=== PATIENT | female | born 1960 ===

== ENCOUNTER 2025-01-10 08:44 | Outpatient (AMB) | payer OTHER, SELFPAY ==
--- NOTE | 2025-01-10 08:49 | MHC.OFFVIS ---
Vital Signs 01/10/25 08:50 Height 5 ft Weight 103 lb 9.876 oz BMI 20.2 BP 133/81 Blood Pressure Location Lt brachial Position Sitting Pulse 80 Intake Visit Reasons: Diarrhea Intake Note: Bhumika presents in the office as a new patient for diarrhea. CC: She states that she has been having diarrhea every day - she states she eats good but she will have severe diarrhea that has been going on for months. Usually after she eats. She states she hears her body digesting the foods. Management Specialist Required: No Allergies No Known Allergies Allergy (Verified 01/10/25 08:50) HPI Comments Details: 64 y.o F with no significant PMH who is here for chronic diarrhea. Started almost 6 months ago. Reports urgency to defecate shortly after eating within 30-60 mins with abd cramping and discomfort. Night time sx +. Stools are watery. 3-4 times a day. Has lost a few lbs because of this. Has tried to eliminate certain foods without any change in sx. Once she has a BM no further cramping. No fevers or chills. No sick contacts. No travel hx. No new meds, in fact does not take any prescription meds. Last colo was 2021. Done at [facility]. Was told normal, and recall was 10 years. Fam hx: sister: breast sister at age 64 sister: panc ca at age 49. No hx of IBD or CRC in fam. Former smoker - remote hx. Drinks etOH 3-4 times a week 1 drink per day. [facility] Surgical History (Updated 01/10/25 @ 08:50 by JUAN Agustin) Hx of colonoscopy Physical Exam Vital Signs: Last Vital Signs Pulse 80 01/10/25 08:50 BP 133/81 01/10/25 08:50 BMI result Body Mass Index 20.2 No apparent distress Nonicteric Abdomen soft, nondistended Alert and oriented x3, normal gait Assessment & Plan Assessment & Plan (1) Chronic diarrhea: Code(s): K52.9 - Noninfective gastroenteritis and colitis, unspecified Category: Medical (2) Change in bowel habit: Code(s): R19.4 - Change in bowel habit Category: Medical (3) Family history of pancreatic cancer: Code(s): Z80.0 - Family history of malignant neoplasm of digestive organs Category: Medical Plan Pt with recent change in bowel habits and diarrhea including at night time. Fam hx of panc ca in sister. Ddx include IBD, microscopic colitis, panc insufficiency, malabsorption. CRC also considered though low likelihood in the context of normal colo 3 years ago. Plan: - Labs as below - CT abd/pel with contrast - Close follow up in 3 weeks to review results and determine indication of endoscopic eval Orders: Orders Comprehensive Met. Panel Today K52.9 - Noninfective gastroenteritis and colitis, unspecified Ferritin Today K52.9 - Noninfective gastroenteritis and colitis, unspecified Hepatitis B Surface Antibody Today K52.9 - Noninfective gastroenteritis and colitis, unspecified Hepatitis B Surface Antigen Today K52.9 - Noninfective gastroenteritis and colitis, unspecified TSH reflex Free T4 Today K52.9 - Noninfective gastroenteritis and colitis, unspecified Transglutaminase IgA Today K52.9 - Noninfective gastroenteritis and colitis, unspecified Complete Blood Count no Diff Today K52.9 - Noninfective gastroenteritis and colitis, unspecified Calprotectin, Fecal Today K52.9 - Noninfective gastroenteritis and colitis, unspecified C Reactive Protein Today K52.9 - Noninfective gastroenteritis and colitis, unspecified Hemoglobin A1c Today K52.9 - Noninfective gastroenteritis and colitis, unspecified Hepatitis A IgG Today K52.9 - Noninfective gastroenteritis and colitis, unspecified Hepatitis B Core Antibody Today K52.9 - Noninfective gastroenteritis and colitis, unspecified Hepatitis C Antibody Today K52.9 - Noninfective gastroenteritis and colitis, unspecified HIV Ab/Ag Today K52.9 - Noninfective gastroenteritis and colitis, unspecified Immunoglobulin A Today K52.9 - Noninfective gastroenteritis and colitis, unspecified IRON PROFILE Today K52.9 - Noninfective gastroenteritis and colitis, unspecified CT abdomen pelvis w IV con Today R19.4 - Change in bowel habit, Z80.0 - Family history of malignant neoplasm of digestive organs Coding Level of Care Code New Pt Level 4 (48321) Complex EM visit Add On G2211 Diagnoses Chronic diarrhea K52.9 Change in bowel habit R19.4 Family history of pancreatic cancer Z80.0
[2025-01-10 08:50] VITALS: BP 133/81; PULSE 80; BMI 20.2
--- OUTSIDE RECORDS SUMMARY | 2025-01-10 08:50 | XMS_ITS | Encounter Summary ---
Author Organization [facility] Address [address] [place] [address] Care Team Providers Care Foster Care Social Worker Name Role Phone Sohail Andrea MD Primary Care Provider [phone] Sohail Andrea MD Primary Care Provider [phone] Reason for Referral * OUTPT P&D-MED SOLUTIONS (Routine) - Closed Specialty Diagnoses / Procedures Referred By Bakari t Referred To Contact Magnetic Resonance Imaging Diagnoses Shoulder impingement syndrome Procedures REQUEST FOR MRI SHOULDER W AND W/O CONTRAST - RIGHT FC [facility] Orthopedic Surgery [address] [facility] [address] [place] [address] Phone: tel: fax: Referral ID Status Reason Start Date Expiration Date V isits Requested Visits Authorized [id number] Closed Specialty Services Required 04/08/2009 1 1 Encounter Details Date Type Department Care Team (Late st Contact Info) Description 04/08/2009 Orders Only [facility] Orthopedic Surgery [address] [facility] [address] [place] [phone] Esmer Whitmore LPN [address] [facility] [address] [place] [address] Social History Tobacco Use Types Packs/Day Years Used Date Smoking Tobacco: Never Alcohol Use Standard Drinks/Week Comments Yes 0 (1 standard drink = 0.6 oz pur e alcohol) Comments No Sex and Gender Information Value Date Recorded Sex Assigned at Not on file Legal Sex Female 2:02 PM EDT Gender Identity Not on file Sexual Orientation Not on file documented as of this encounter Plan of Treatment Not on file documented as of this encounter Visit Diagnoses Diagnosis Shoulder impingement syndrome- Primary Other affections of shoulder region, not elsewhere classified documented in this encounter Care Teams Foster Care Social Worker Relationship Specialty Start Date End Date Sohail Andrea MD [facility] [address] [place] [phone] PCP - General 07/27/09 Sohail Andrea MD [facility] [address] [place] [phone] PCP - General 10/03/05 07/26/09 documented as of this encounter
--- OUTSIDE RECORDS SUMMARY | 2025-01-10 08:50 | XMS_ITS | Clinical Summary ---
Author Organization [facility] Address [address] [place] [address] Care Team Providers Care Channel Marketing Coordinator Name Role Phone Pcp, No Primary Care Provider [phone] Social History Tobacco Use Types Packs/Day Years Used Date Smoking Tobacco: Never Assessed Comments Unknown Sex and Gender Information Value Date Recorded Sex Assigned at Not on file Legal Sex Female 9:49 AM EDT Gender Identity Not on file Sexual Orientation Not on file Plan of Treatment Health Maintenance Due Date Last Done Comments Colorectal Cancer: [place] PY Screening every 10 yrs (or Modifier) 1961 Depression: Screening Annual ly using PHQ-2/9 in Adults 18 yrs or above (or HM Modifier)([facility]) 1979 Hepatitis C Virus Infection in Adolescents and Adults: Screening (or Modifier) ([facility]) 1979 [facility] Screening Reminder: Muriel story for all adults ([facility]) 1979 Tobacco Smoking Cessation: i n Adults excluding Women: Behavioral and Pharmacotherapy Interventions ([facility]) 1979 DTaP/Tdap/Td Vaccines ([facility]) (1 - Tdap) 01/14/1980 Cervical Cancer Screenin 1-65 yrs of age (or Modifier) 1982 Cervical Cancer Screening: P ap every 3 yrs pts age 21-65 1982 Cervical Cancer: Pap Screeni ng with Modifier timing ([facility]) 1982 Cervical Cancer: hrHPV alone or with cotesting Pap for Pts 30-65yrs screening every 5yrs ([facility]) 1982 Colorectal Cancer Screening 45 -75 Yrs (or HM Modifier ) 2006 Colorectal Cancer: FLEXIBLE SIGMOIDOSCOPY Screening every 5 yrs 2006 Colorectal Cancer: Fecal Imm unochemical Test (FIT) Annually [facility] 2006 Colorectal Cancer: High-sens itivity gFOBT Screening Annually [facility] 2006 Colorectal Cancer: Stool Col oguard Screening every 3 yrs 2006 Colorectal Cancer:CT Colonography Screening every 5 yr s 2006 Breast Cancer: Screening Muriel ually age 50-74 yrs (or HM Modifier)([facility]) 2011 Pneumococcal Vaccination Scr eening: Patients 50+ yrs of age ([facility]) (1 of 1 - PCV) 2011 Zoster/Shingles Vaccine Seri es Screening: Adults aged 18+ yrs (or HM Modifiers)([facility]) (1 of 2) 2011 COVID-19 Vaccine Screening: Initial Series and Booster Status ([facility]) (2023- season) 2024 Flu Vaccination: Yearly for ages 18mos through 64 years (or Modifier)([facility]) 02/09/2025 RSV Vaccines (1 - 1-dose 75+ series) 01/14/2036 Medical Devices Not on file Insurance [facility] Care Teams Channel Marketing Coordinator Relationship Specialty Start Date End Date Pcp, No PCP - General Family Medicine 10/22/20
--- OUTSIDE RECORDS SUMMARY | 2025-01-10 08:50 | XMS_ITS | Encounter Summary ---
Author Organization [facility] Address [address] [place] [address] Care Team Providers Care Financial Secretary Name Role Phone Eduardo Parson MD Primary Care Provider [phone] Encounter Details Date Type Department Care Team (Late st Contact Info) Description 11/27/2024 Results Follow-Up [address] [employer] Department [address] [place] [phone] Eri Chaney MD [address] [place] [phone] Social History Tobacco Use Types Packs/Day Years Used Date Smoking Tobacco: Never Passive Smoke Exposure: Never Smokeless Tobacco: Never Alcohol Use Standard Drinks/Week Comments Yes 4 (1 standard drink = 0.6 oz pur e alcohol) [facility] Utilities Answer Date Recorded In the past 12 months has th e electric, gas, oil, or water company threatened to shut off services in your home? No 11/08/2024 Hunger Vital Sign Answer Date Recorded Within the past 12 months, y ou worried that your food would run out before you got the money to buy more. Never true 11/09/19 25 Within the past 12 months, t he food you bought just didn't last and you didn't have money to get more. Never true 11/08/2024 Transportation Answer Date Recorded In the past 12 months, has l ack of reliable transportation kept you from medical appointments, meetings, work or from getting things needed for daily living? No 11/08/2024 Housing Answer Date Recorded Housing Risk Low 2 11/08/2024 Housing Risk Medium Not on file 11/08/2024 Housing Risk High Not on file 11/08/2024 What is your living situation today? [facility] 11/08/2024 Comments No Sex and Gender Information Value Date Recorded Sex Assigned at Female 05/24/2023 11:06 AM EST Legal Sex Female 5:16 PM EDT Gender Identity Female 10/22/2023 8:31 AM EDT Sexual Orientation Straight 10/22/2023 8: 31 AM EDT documented as of this encounter Miscellaneous Notes * Result Encounter Note - Eri Chaney MD - 11/27/2024 12:58 PM EDT Pap smear is normal with negative HPV documented in this encounter Plan of Treatment Upcoming Encounters Date Type Department Care Team (Late st Contact Info) Description 02/21/2025 11:00 AM EDT Office Visit [facility] [address] [facility] Department [address] [facility] [place] [address] Eduardo Parson MD [address] [place] [phone] 03/15/2025 7:30 AM EDT Appointment [facility] [address] [place] [phone] 03/15/2025 8:00 AM EDT Appointment [facility] [address] [place] [address] 12/11/2025 8:00 AM EDT Office Visit [facility] [address] [facility] Gynecology [address] [place] [phone] Eri Chaney MD [address] [place] [phone] documented as of this encounter Visit Diagnoses Not on filedocumented in this encounter Care Teams Financial Secretary Relationship Specialty Start Date End Date Eduardo Parson MD [address] [place] [phone] PCP - General Family Medicine 11/08/24 documented as of this encounter
== END 2025-01-10 09:46 | disposition home or self-care (01) ==
LOC: HO.HGI 08:44
PROVIDERS: Visit Provider Internal Medicine
DX: K52.9 Noninfective gastroenteritis and colitis, unspecified (principal); R19.4 Change in bowel habit; Z80.0 Family history of malignant neoplasm of digestive organs
CPT/HCPCS: 99204

== ENCOUNTER 2025-01-10 08:44 | Outpatient (REF) | payer OTHER, SELFPAY ==
[2025-01-10 11:05] LABS: Hematocrit 39.2 % (37.0-47.0); Hemoglobin 12.9 g/dl (12.0-16.0); Mean Corpuscular HGB Conc 32.9 g/dl (31.0-35.0); Mean Corpuscular Hemoglobin 29.7 pg (27.0-33.0); Mean Corpuscular Volume 90.3 fL (80.0-98.0); NRBC Abs Auto 0.000 X10*3/uL (0.0-0.012); NRBC Pct Auto 0.0 /100WBC (0.0-0.2); Platelet Count 244 X10*3/uL (160-400); Red Blood Count 4.34 X10*6/uL (4.20-5.50); White Blood Count 5.8 X10*3/uL (4.8-10.8)
[2025-01-10 11:09] LABS: Hemoglobin A1C 128.8619 umol/L; Total Hemoglobin (HGBA1C) 3427.4426 umol/L
[2025-01-10 11:33] LABS: Alanine Aminotransferase 22 U/L (0-31); Albumin Level 4.5 g/dL (3.5-5.0); Alkaline Phosphatase 63 U/L (39-117); Anion Gap 10 (12-20); Aspartate Amino Transferase 21 U/L (5-31); Blood Urea Nitrogen 12 mg/dL (9-16); Calcium 9.3 mg/dL (8.4-10.2); Carbon Dioxide 29 mmol/L (22-29); Chloride 105 mmol/L (96-108); Estimated Glomerular Filt Rate > 60; Iron 77 mcg/dL (30-160); Percent Iron Saturation 26 % (15-50); Potassium 3.8 mmol/L (3.3-5.1); Sodium 140 mmol/L (135-145); Total Iron Binding Capacity 296 mcg/dL (228-428); Total Protein 7.6 g/dL (6.5-8.0); Unsaturated Iron Binding 219 ug/dL
[2025-01-10 11:46] LABS: HBS Num1 1.00 mIU/mL (0-7.99); HBc Num1 0.07 S/CO (0.00-0.79); HBsAGNum1 0.30 S/CO (0.00-0.99); HIV Num 1 0.10 S/CO (0.00-0.99); Hepatitis B Surface Antigen Negative (Negative); ~HepC Num1 0.09 S/CO (0.00-0.79); ~Hepatitis B Surface Antibody NONREACTIVE (Nonreactive); ~Hepatitis C Antibody Nonreactive (Nonreactive)
[2025-01-10 11:49] LABS: Ferritin 43 ng/mL (10-250)
[2025-01-11 08:44] LABS: ~Hepatitis A Antibody IgG 0.44 S/CO (0.00-0.99)
[2025-01-11 12:47] LABS: Immunoglobulin A 171 mg/dL (70-320)
[2025-01-17 19:53] LABS: Calprotectin, Fecal 90 mcg/g
== END 2025-01-10 08:45 | disposition home or self-care (01) ==
LOC: HO.LAB 08:44
PROVIDERS: PCP Family Medicine; Visit Provider Internal Medicine
DX: K52.9 Noninfective gastroenteritis and colitis, unspecified (principal); Z13.1 Encounter for screening for diabetes mellitus; R19.4 Change in bowel habit
CPT/HCPCS: 36415; 80053; 82728; 82784; 83036; 83540; 83993; 84443; 85027; 86140; 86364; 86704; 86706; 86708; 86803; 87340; 87389

== ENCOUNTER 2025-01-24 14:52 | Outpatient (REF) | payer OTHER, SELFPAY ==
--- NOTE | ~2025-01-24 | CT_ITS ---
EXAMINATION: CT ABDOMEN AND PELVIS WITH CONTRAST CLINICAL INFORMATION: R19.4 - Change in bowel habit COMPARISON: None available. TECHNIQUE: Multidetector volumetric images were obtained from the superior aspect of the liver through the pubic symphysis following administration 85 mL of Omnipaque 350 intravenous contrast. Sagittal and coronal reformatted images were obtained on the technologist's workstation. Oral contrast: No This CT examination was performed using dose optimization techniques as appropriate, variously including the following: *Automated exposure control *Adjustment of mA and/or kV according to patient size (this includes techniques or standardized protocols for targeted exams where dose is matched to indication/reason for exam; i.e. extremities or head) *Use of iterative reconstruction technique Findings: HEPATOBILIARY: Small oval hypodensity in the medial dome of the liver is consistent with benign simple hepatic cyst. The gallbladder contains no visible stones. There is no intrahepatic or extrahepatic biliary ductal dilation. PANCREAS: The pancreatic duct diameter is borderline measuring 3 to 4 mm in the body. SPLEEN: The spleen is homogeneous and without enlargement. ADRENALS: Unremarkable without nodules or mass. 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 There is no hydronephrosis. There is no nephrolithiasis. There is no bladder wall thickening. Uterus and adnexa are unremarkable. BOWEL: The GE junction is not displaced. The GI tract is unremarkable. The appendix is nondilated and there is no wall thickening or inflammatory changes in the mesoappendix. LYMPHOVASCULAR: There is no adenopathy. There is no aneurysm or atherosclerotic calcifications. ABDOMINAL CAVITY and Wall: No ascites, mesenteric engorgement or fat stranding, or free air. There is no hernia. SOFT TISSUES: Unremarkable without abnormal masses or fluid collections. Skeletal structures: There are no lytic or blastic lesions. CT/CT abdomen pelvis w IV con IMPRESSION: Borderline dilation of the pancreatic duct in the body of the pancreas. No clear etiology is identified and it can be age-related. No masses identified and no peripancreatic fat stranding or heterogeneity is present suggestive Fleischner guidelines were followed. Electronically signed by: Ervin Chester MD 01/24/2025 05:01 PM EDT
--- OUTSIDE RECORDS SUMMARY | 2025-01-24 15:24 | XMS_ITS | Encounter Summary ---
Author Organization [facility] Address [address] [place] [address] Care Team Providers Care Rehabilitation Caseworker Name Role Phone Eduardo Parson MD Primary Care Provider [phone] Encounter Details Date Type Department Care Team (Late st Contact Info) Description 11/27/2024 Results Follow-Up [address] [employer]ATOR Department [address] [place] [phone] Eri Chaney MD [address] [place] [address] Social History Tobacco Use Types Packs/Day Years Used Date Smoking Tobacco: Never Passive Smoke Exposure: Never Smokeless Tobacco: Never Alcohol Use Standard Drinks/Week Comments Yes 4 (1 standard drink = 0.6 oz pur e alcohol) [facility] Utilities Answer Date Recorded In the past [...] Description 02/21/2025 11:00 AM EDT Office Visit [facility] [address] [facility] Department [address] [place] [address] [place] [phone] Eduardo Parson MD [address] [place] [phone] 03/15/2025 7:30 AM EDT Appointment [facility] [address] [place] [phone] Eri Chaney MD [address] [place] [phone] 03/15/2025 8:00 AM EDT Appointment [facility] [address] [place] [phone] Eri Chaney MD [address] [place] [phone] 12/11/2025 8:00 AM EDT Office Visit [facility] [address] [facility] Gynecology [address] [place] [phone] Eri Chaney MD [address] [place] [phone] documented as of this encounter Visit Diagnoses Not on filedocumented in this encounter Care Teams Rehabilitation Caseworker Relationship Specialty Start Date End Date Eduardo Parson MD [address] [place] [phone] PCP - General Family Medicine 11/08/24 documented as of this encounter
--- OUTSIDE RECORDS SUMMARY | 2025-01-24 15:24 | XMS_ITS | Encounter Summary ---
Author Organization [facility] Address [address] [place] [address] Care Team Providers Care Jet Dyeing Machine Tender Name Role Phone Sohail Andrea MD Primary Care Provider [phone] Sohail Andrea MD Primary Care Provider [phone] Reason for Referral * OUTPT P&D-MED SOLUTIONS (Routine) - Closed Specialty Diagnoses / Procedures Referred By Bakari t Referred To Contact Magnetic Resonance Imaging Diagnoses Shoulder impingement syndrome Procedures REQUEST FOR MRI SHOULDER W AND W/O CONTRAST - RIGHT FC [facility] Orthopedic Surgery [address] [facility] [address] [place] [address] Phone: tel: fax: Referral ID Status Reason Start Date Expiration Date V isits Requested Visits Authorized [id number] Closed Specialty Services Required 04/08/2009 1 1 Encounter Details Date Type Department Care Team (Late st Contact Info) Description 04/08/2009 Orders Only [facility] Orthopedic Surgery [address] [facility] [address] [place] [phone] Esmer Whitmore LPN [address] [facility] [address] [place] [address] Social History Tobacco Use Types Packs/Day Years [...] classified documented in this encounter Care Teams Jet Dyeing Machine Tender Relationship Specialty Start Date End Date Sohail Andrea MD [facility] [address] [place] [phone] PCP - General 07/27/09 Sohail Andrea MD [facility] [address] [place] [phone] PCP - General 10/03/05 07/26/09 documented as of this encounter
--- OUTSIDE RECORDS SUMMARY | 2025-01-24 15:24 | XMS_ITS | Clinical Summary ---
Author Organization [facility] Address [address] [place] [address] Care Team Providers Care Rubber Curer Name Role Phone Pcp, No Primary Care Provider [phone] Social History Tobacco Use Types Packs/Day Years [...] Adults 18 yrs or above (or HM Modifier)([facility]) 1979 Hepatitis C Virus Infection in Adolescents and Adults: Screening (or Modifier) ([facility]) [address] [facility] Screening Reminder: Muriel story for all adults ([facility]) 1979 Tobacco Smoking Cessation: i n Adults excluding Women: Behavioral and Pharmacotherapy Interventions ([facility]) 1979 DTaP/Tdap/Td Vaccines ([facility]) (1 - Tdap) 01/14/1980 Cervical Cancer Screenin 1-65 yrs of age (or Modifier) 1982 Cervical Cancer Screening: P ap every 3 yrs pts age 21-65 1982 Cervical Cancer: Pap Screeni ng with Modifier timing ([facility]) 1982 Cervical Cancer: hrHPV alone or with cotesting Pap for Pts 30-65yrs screening every 5yrs ([facility]) 1982 Colorectal Cancer Screening 45 -75 Yrs (or HM Modifier ) 2006 Colorectal Cancer: FLEXIBLE SIGMOIDOSCOPY Screening every 5 yrs 2006 Colorectal Cancer: Fecal Imm unochemical Test (FIT) Annually [facility] 2006 Colorectal Cancer: High-sens itivity gFOBT Screening Annually [facility] 2006 Colorectal Cancer: Stool Col oguard Screening every 3 yrs 2006 Colorectal Cancer:CT Colonography Screening every 5 yr s 2006 Breast Cancer: Screening Muriel ually age 50-74 yrs (or HM Modifier)([facility]) 2011 Pneumococcal Vaccination Scr eening: Patients 50+ yrs of age ([facility]) (1 of 1 - PCV) 2011 Zoster/Shingles Vaccine Seri es Screening: Adults aged 18+ yrs (or HM Modifiers)([facility]) (1 of 2) 2011 COVID-19 Vaccine Screening: Initial Series and Booster Status ([facility]) (2023- season) 2024 Flu Vaccination: Yearly for ages 18mos through 64 years (or Modifier)([facility]) 02/09/2025 RSV Vaccines (1 - 1-dose 75+ series) 01/14/2036 Medical Devices Not on file Insurance [facility] Care Teams Rubber Curer Relationship Specialty Start Date End Date Pcp, No PCP - General Family Medicine 10/22/20
== END 2025-01-24 14:53 | disposition home or self-care (01) ==
LOC: HO.CT 14:52
PROVIDERS: PCP Family Medicine; Visit Provider Internal Medicine
DX: R19.4 Change in bowel habit (principal); Z80.0 Family history of malignant neoplasm of digestive organs
CPT/HCPCS: 74177

== ENCOUNTER → 2025-01-24 14:54 | Outpatient (BNV) | payer OTHER, SELFPAY | PROVIDERS: PCP Family Medicine; Visit Provider Radiology Diagnostic Radiology | DX: K76.89 Other specified diseases of liver (principal) | CPT/HCPCS: 74177 ==

== ENCOUNTER 2025-02-12 08:31 | Outpatient (AMB) | payer OTHER, SELFPAY ==
--- NOTE | 2025-02-12 08:38 | A.OFFVIS_ITS ---
Vital Signs 02/12/25 08:39 Height 5 ft Weight 101 lb 6.602 oz BMI 19.8 BP 146/89 H Blood Pressure Location Lt brachial Position Sitting Pulse 75 Intake Visit Reasons: 3 wks f/u change in bowel habits Intake Note: Bhumika presents in the office as a 3 weeks follow up for chance in her bowel habits. CC: She is here for results to all her tests. Journeyman Pipefitter Required: No Allergies No Known Allergies Allergy (Verified 02/12/25 08:48) HPI Comments Details: 64 y.o F with no significant PMH who is here for chronic diarrhea. Started almost 6 months ago. Reports urgency to defecate shortly after eating within 30-60 mins with abd cramping and discomfort. Night time sx +. Stools are watery. 3-4 times a day. Has lost a few lbs because of this. Has tried to eliminate certain foods without any change in sx. Once she has a BM no further cramping. No fevers or chills. No sick contacts. No travel hx. No new meds, in fact does not take any prescription meds. Last colo was 2021. Done at [facility]. Was told normal, and recall was 10 years. Fam hx: sister: breast sister at age 64 sister: panc ca at age 49. No hx of IBD or CRC in fam. Former smoker - remote hx. Drinks etOH 3-4 times a week 1 drink per day. 02/12/25: Seen in follow up. Reports unchanged sx of post prandial discomfort and diarrhea. Blood work and stool testing reviewed. Overall normal. CT reviewed, borderline PD dilation. To recall, pt with fam hx of pancreatic ca. Borderline dilation of the pancreatic duct in the body of the pancreas. No clear etiology is identified and it can be age-related. No masses identified and no peripancreatic fat stranding or heterogeneity is present suggestive. [facility] Surgical History Hx of colonoscopy Review of Systems Const All systems reviewed & are unremarkable except as noted in HPI and below Physical Exam Exam Exam: No apparent distress Nonicteric Abdomen soft, nondistended Alert and oriented x3, normal gait Vital Signs: Last Vital Signs Pulse 75 02/12/25 08:39 BP 146/89 H 02/12/25 08:39 BMI result Body Mass Index 19.8 Results Reviewed Results Reviewed: Laboratory Tests 01/10/25 01/10/25 10:32 13:40 Hgb 12.9 Hct 39.2 Hemoglobin A1c % 5.6 Calcium 9.3 Iron 77 Ferritin 43 C-Reactive Protein < 0.10 Stool Calprotectin 90 IgA 171 Tiss Transglutamin IgA <1.0 Assessment & Plan Assessment & Plan (1) Pancreatic duct dilated: Code(s): K86.89 - Other specified diseases of pancreas Category: Medical (2) Chronic diarrhea: Code(s): K52.9 - Noninfective gastroenteritis and colitis, unspecified Category: Medical (3) Change in bowel habit: Code(s): R19.4 - Change in bowel habit Category: Medical (4) Family history of pancreatic cancer: Code(s): Z80.0 - Family history of malignant neoplasm of digestive organs Category: Medical Plan Based on workup done so far, most likely differentials include microscopic colitis, SIBO, enteropathy, IBS diarrhea predominant, pancreatic insufficiency. CT findings of PD dilation noted, less likely to be related to her symptoms, however due to the family history of pancreatic cancer, will perform 1 time MRCP for anatomical evaluation. Plan: -EGD colonoscopy for luminal evaluation -PEG prep Rxed and instructions reviewed -MRCP ordered -stool testing ordered as below -follow-up after testing Orders: Orders Fecal Fat Qualitative Today K52.9 - Noninfective gastroenteritis and colitis, unspecified Pancreatic Elastase-1 Today K52.9 - Noninfective gastroenteritis and colitis, unspecified MR MRCP Today K86.89 - Other specified diseases of pancreas Medications: New peg 3350-electrolytes 236-22.74-6.74 -5.86 gram (Golytely) as per split prep instructions, until fecal effluent is clear 240 mL PO Q10M 4,000 mL 0RF colonoscopy Coding Level of Care Code Est Pt Level 4 (95610) Diagnoses Pancreatic duct dilated K86.89 Chronic diarrhea K52.9 Change in bowel habit R19.4 Family history of pancreatic cancer Z80.0
[2025-02-12 08:39] VITALS: BP 146/89; PULSE 75; BMI 19.8
--- OUTSIDE RECORDS SUMMARY | 2025-02-12 08:52 | XMS_ITS | Encounter Summary ---
Author Organization [facility] Address [address] [place] [address] Care Team Providers Care Driver Merchandiser Name Role Phone Eduardo Parson MD Primary Care Provider [phone] Encounter Details Date Type Department Care Team (Latest Contact Info) Description 10/12/2022 Transcribe Orders [facility] Referral Services [address] [place] [address] Sohail Andrea MD [address] [place] [address] Elevated AST (SGOT) (Primary Dx); Family history of malignant neoplasm of pancreas Social History Tobacco Use Types Packs/Day Years Used Date Smoking Tobacco: Never Assessed Comments Unknown Sex and Gender Information Value Date Recorded Sex Assigned at Female 05/24/2023 11:06 AM EST Legal Sex Female 5:16 PM EDT Gender Identity Female 10/22/2023 8:31 AM EDT Sexual Orientation Straight 10/22/2023 8: 31 AM EDT documented as of this encounter Plan of Treatment Upcoming Encounters Date Type Department Care Team (Late st Contact Info) Description 02/21/2025 11:00 AM EDT Office Visit [facility] [address] 10 [facility] [place] [address] Eduardo Parson MD [address] [place] [address] 03/15/2025 7:30 AM EDT Appointment [facility] [address] [place] [address] Eri Chaney MD [address] [place] [address] 03/15/2025 8:00 AM EDT Appointment [facility] [address] [place] [address] Eri Chaney MD [address] [place] [address] 12/11/2025 8:00 AM EDT Office Visit [address] Gyne[address] [place] [phone] Eri Chaney MD [address] [place] [address] documented as of this encounter Visit Diagnoses Diagnosis Elevated AST (SGOT)- Primary Family history of malignant neoplasm of pancreas documented in this encounter Care Teams Driver Merchandiser Relationship Specialty Start Date End Date Eduardo Parson MD [address] [place] [address] PCP - General Family Medicine 11/08/24 documented as of this encounter
--- OUTSIDE RECORDS SUMMARY | 2025-02-12 08:52 | XMS_ITS | Clinical Summary ---
Author Organization [facility] [place] [facility] Address [address] [place] [address] Care Team Providers Care Four Slide Machine Operator Name Role Phone Pcp, No Primary Care Provider [phone] Social History Tobacco Use Types Packs/Day Years [...] Adults 18 yrs or above (or HM Modifier)([facility]) 1979 Hepatitis C Virus Infection in Adolescents and Adults: Screening (or Modifier) ([facility]) 1979 [facility] Screening Reminder: Muriel story for all adults ([facility]) 1979 Tobacco Smoking Cessation: i n Adults excluding Women: Behavioral and Pharmacotherapy Interventions ([facility]) 1979 DTaP/Tdap/Td Vaccines ([facility]) (1 - Tdap) 01/14/1980 Cervical Cancer Screenin 1-65 yrs of age (or Modifier) 1982 Cervical Cancer Screening: P ap every 3 yrs pts age 21-65 1982 Cervical Cancer: Pap Screeni ng with Modifier timing ([facility]) 1982 Cervical Cancer: hrHPV alone or with cotesting Pap for Pts 30-65yrs screening every 5yrs ([facility]) 1982 Colorectal Cancer Screening 45 -75 Yrs (or HM Modifier ) 2006 Colorectal Cancer: FLEXIBLE SIGMOIDOSCOPY Screening every 5 yrs 2006 Colorectal Cancer: Fecal Imm unochemical Test (FIT) Annually [facility] 2006 Colorectal Cancer: High-sens itivity gFOBT Screening Annually [facility] 2006 Colorectal Cancer: Stool Col oguard Screening every 3 yrs 2006 Colorectal Cancer:CT Colonography Screening every 5 yr s 2006 Breast Cancer: Screening Muriel ually age 50-74 yrs (or HM Modifier)([facility]) 2011 Pneumococcal Vaccination Scr eening: Patients 50+ yrs of age ([facility]) (1 of 1 - PCV) 2011 Zoster/Shingles Vaccine Seri es Screening: Adults aged 18+ yrs (or HM Modifiers)([facility]) (1 of 2) 2011 COVID-19 Vaccine Screening: Initial Series and Booster Status ([facility]) (2023- season) 2024 Flu Vaccination: Yearly for ages 18mos through 64 years (or Modifier)([facility]) 02/09/2025 RSV Vaccines (1 - 1-dose 75+ series) 01/14/2036 Medical Devices Not on file Insurance [facility] Care Teams Four Slide Machine Operator Relationship Specialty Start Date End Date Pcp, No PCP - General Family Medicine 10/22/20
--- OUTSIDE RECORDS SUMMARY | 2025-02-12 08:53 | XMS_ITS | Clinical Summary ---
Author Organization [facility] Address [address] [facility] [address] [place] [address] Phone Care Team Providers Care Environmental Restoration Planner Name Role Phone Sohail Andrea MD Primary Care Provider Allergies No known active allergies Medications nystatin cream Apply topically 2 (two) times a day. For 2 weeks to rash on back and then as needed 30 g 11 9 Active Active Problems Problem Noted Date Diagnosed Date Allergic contact dermatitis due to rubber chemic al 10/27/2018 Allergic contact dermatitis due to dyes 10/28/19 19 Allergic contact dermatitis due to cosmetics Contact allergic reaction 10/24/2018 Tinea versicolor 10/24/2018 Social History Tobacco Use Types Packs/Day Years Used Date Smoking Tobacco: Never Assessed Education Answer Date Recorded Are you interested in more education? Not on luther e 11/06/2022 Are you concerned about learning? Not on file 11/06/2022 No 11/06/2022 No 11/06/2022 Digital Access Answer Date Recorded No 12/05/2022 No 12/05/2022 Reliable internet access at home? Not on file 12/05/2022 Device with a working camera? Not on file Comments Unknown Sex and Gender Information Value Date Recorded Sex Assigned at Not on file Legal Sex Female 9:09 AM EDT Gender Identity Not on file Sexual Orientation Not on file Plan of Treatment Health Maintenance Due Date Last Done Comments Adult Td,Tdap Booster 1961 LIPID PANEL 1961 DEPRESSION SCREENING 1973 SMOKING Hx and SMOKELESS TOBACCO SCREENING 1974 HEPATITIS C SCREENING 1979 HIV ONE-TIME SCREENING (18-6 5 YEARS) 1979 PAP SMEAR 1982 MAMMOGRAM 2001 COLOGUARD 2006 COLONOSCOPY 2006 COLORECTAL CANCER SCREENING 2006 FIT TEST 2006 FOBT 2006 SIGMOIDOSCOPY 2006 VIRTUAL COLONOSCOPY 2006 PNEUMOCOCCAL VACCINES (50+ years) (1 of 1 - PCV) 2011 COVID-19 VACCINE (3 - 2023-2 5 season) 2024 11/26/2020, 11/05/2020 RSV VACCINE (1 - 1-dose 75+ series) 01/14/2036 ZOSTER VACCINES Completed 08/13/2020, 06/11/2020 HEPATITIS A VACCINES Aged Out No long er eligible based on patient's age to complete this topic HIB VACCINES Aged Out No longer eligi ble based on patient's age to complete this topic MENINGOCOCCAL VACCINES (ACWY) Aged Out No longer eligible based on patient's age to complete this topic MENINGOCOCCAL VACCINES (B) Aged Out N o longer eligible based on patient's age to complete this topic Medical Devices Not on file Insurance [facility] [employer] [place] [employer] [place] [employer] [place] [id number] [place] [facility] [place] Address: [place] [address] [place] [id number] [facility] [place] Address: [place] [address] [place] [id number] [employer] [employer] [employer] [employer] [employer] Care Teams Environmental Restoration Planner Relationship Specialty Start Date End Date Sohail Andrea MD [address] [place] [address] PCP - General Family Medicine 02/21/18 Additional Source Comments The information contained in this document represents components of the legal health record. It is not the complete legal health record.[facility]
--- OUTSIDE RECORDS SUMMARY | 2025-02-12 08:53 | XMS_ITS | Encounter Summary ---
Author Organization [facility] Address [address] [place] [address] Care Team Providers Care Manager Msw Name Role Phone Sohail Andrea MD Primary Care Provider [phone] Sohail Andrea MD Primary Care Provider [phone] Reason for Referral * OUTPT P&D-MED SOLUTIONS (Routine) - Closed Specialty Diagnoses / Procedures Referred By Bakari t Referred To Contact Magnetic Resonance Imaging Diagnoses Shoulder impingement syndrome Procedures REQUEST FOR MRI SHOULDER W AND W/O CONTRAST - RIGHT FC [facility] Orthopedic Surgery [address] [facility] [address] [place] [address] Phone: tel: fax: Referral ID Status Reason Start Date Expiration Date V isits Requested Visits Authorized [id number] Closed Specialty Services Required 04/08/2009 1 1 Encounter Details Date Type Department Care Team (Late st Contact Info) Description 04/08/2009 Orders [address] [facility] Orthopedic Surgery [address] [facility] [address] [place] [phone] Esmer Whitmore LPN [address] [facility] [address] [place] [address] Social History Tobacco Use Types Packs/Day Years [...] classified documented in this encounter Care Teams Manager Msw Relationship Specialty Start Date End Date Sohail Andrea MD [facility] [address] [place] [phone] PCP - General 07/27/09 Sohail Andrea MD [facility] [address] [place] [phone] PCP - General 10/03/05 07/26/09 documented as of this encounter
== END 2025-02-12 10:18 | disposition home or self-care (01) ==
LOC: HO.HGI 08:32
PROVIDERS: Visit Provider Internal Medicine
DX: K86.89 Other specified diseases of pancreas (principal); K52.9 Noninfective gastroenteritis and colitis, unspecified; R19.4 Change in bowel habit; Z80.0 Family history of malignant neoplasm of digestive organs
CPT/HCPCS: 99214

== ENCOUNTER 2025-02-13 07:00 | Outpatient (REF) | payer OTHER, SELFPAY ==
--- OUTSIDE RECORDS SUMMARY | 2025-02-13 07:41 | XMS_ITS | Encounter Summary ---
Author Organization [facility] Address [address] [place] [address] Care Team Providers Care Pick Up Driver Name Role Phone Eduardo Parson MD Primary Care Provider [phone] Encounter Details Date Type Department Care Team (Latest Contact Info) Description 10/12/2022 Transcribe Orders [facility] Physician Referral Services [address] [place] [address] Sohail Andrea MD [address] [place] [address] Elevated AST (SGOT) (Primary Dx); Family history [...] Description 02/21/2025 11:00 AM EDT Office Visit [facility] [address] Department 10 [facility] [place] [address] Eduardo Parson MD [address] [place] [address] 03/15/2025 7:30 AM EDT Appointment [facility] [address] [place] [address] Eri Chaney MD [address] [place] [address] 03/15/2025 8:00 AM EDT Appointment [facility] [address] [place] [address] Eri Chaney MD [address] [place] [address] 12/11/2025 8:00 AM EDT Office Visit [address] Gynecology [address] [place] [phone] Eri Chaney MD [address] [place] [address] documented as of this encounter Visit Diagnoses Diagnosis Elevated AST (SGOT)- Primary Family history of malignant neoplasm of pancreas documented in this encounter Care Teams Pick Up Driver Relationship Specialty Start Date End Date Eduardo Parson MD [address] [place] [address] PCP - General Family Medicine 11/08/24 documented as of this encounter
--- OUTSIDE RECORDS SUMMARY | 2025-02-13 07:41 | XMS_ITS | Encounter Summary ---
Author Organization [facility] Address [address] [place] [address] Care Team Providers Care Senior Front End Developer Name Role Phone Sohail Andrea MD Primary Care Provider [phone] Sohail Andrea MD Primary Care Provider [phone] Reason for Referral * OUTPT P&D-MED SOLUTIONS (Routine) - Closed Specialty Diagnoses / Procedures Referred By Bakari t Referred To Contact Magnetic Resonance Imaging Diagnoses Shoulder impingement syndrome Procedures REQUEST FOR MRI SHOULDER W AND W/O CONTRAST - RIGHT FC [facility] Orthopedic Surgery [address] [facility] [address] [place] [address] Phone: tel: fax: Referral ID Status Reason Start Date Expiration Date V isits Requested Visits Authorized [id number] Closed Specialty Services Required 04/08/2009 1 1 Encounter Details Date Type Department Care Team (Late st Contact Info) Description 04/08/2009 Orders Only [facility] Orthopedic Surgery [address] [facility] [address] [place] [phone] Esmer Whitmore LPN [address] [facility] [address] [place] [address] Social History Tobacco Use Types Packs/Day Years [...] classified documented in this encounter Care Teams Senior Front End Developer Relationship Specialty Start Date End Date Sohail Andrea MD [facility] [address] [place] [phone] PCP - General 07/27/09 Sohail Andrea MD [facility] [address] [place] [phone] PCP - General 10/03/05 07/26/09 documented as of this encounter
--- OUTSIDE RECORDS SUMMARY | 2025-02-13 07:41 | XMS_ITS | Clinical Summary ---
Author Organization [facility] Address [address] [facility] [address] [place] [address] Phone Care Team Providers Care Hardware Manager Name Role Phone Sohail Andrea MD Primary [...] topic Medical Devices Not on file Insurance [facility] [employer] [employer] [employer] [place] [employer] [place] [id number] [place] [id number] [place] [id number] [employer] [employer] Care Teams Hardware Manager Relationship Specialty Start Date End Date Sohail Andrea MD [address] [place] [address] PCP - General Family Medicine 02/21/18 Additional Source Comments The information contained in this document represents components of the legal health record. It is not the complete legal health record.[facility]
--- OUTSIDE RECORDS SUMMARY | 2025-02-13 07:41 | XMS_ITS | Clinical Summary ---
Author Organization [facility] Address [address] [facility] [place] [address] Phone Care Team Providers Care Rigging Supervisor Name Role Phone Sohail Andrea MD Primary Care Provider [phone] Allergies No known active allergies Medications dexamethasone 0.5 mg/5 mL solutionIndicat ions:Recurrent aphthous stomatitis Rinse with 5 mL for three minutes three times daily and spit out. Discontinue when your symptoms resolve 500 mL 3 8 Active Social History Tobacco Use Types Packs/Day Years Used Date Smoking Tobacco: Never Smokeless Tobacco: Never Alcohol Use Standard Drinks/Week Comments Yes 0 (1 standard drink = 0.6 oz pur e alcohol) Socially. Comments No Sex and Gender Information Value Date Recorded Sex Assigned at Not on file Legal Sex Female 11:26 AM EDT Gender Identity Not on file Sexual Orientation Not on file Last Filed Vital Signs Vital Sign Reading Time Taken Comments Blood Pressure 131/67 02/16/2018 3:13 PM EDT Pulse 84 02/16/2018 3:13 PM EDT Temperature 36.8 C (98.2 F) 02/16/2018 3:13 PM EDT Respiratory Rate - - Oxygen Saturation - - Inhaled Oxygen Concentration - - Weight - - Height - - Body Mass Index - - Plan of Treatment Health Maintenance Due Date Last Done Comments Diabetes Screening 1961 HIV Lifetime Screening 1961 Hepatitis B Lifetime Screening 1961 Hepatitis C Antibody Lifetim e Screening 1961 LIPID PANEL 1961 THRIVE SCREENING 1961 Oral Health Screen 1961 HEIP Disability Screen 1966 BEHAVIORAL HEALTH SCREEN 1973 Psych Substance Use Screen 1973 DTAP/TDAP VACCINE (1 - Tdap) 01/14/1980 Cervical Cancer Screening 1982 Colposcopy 1982 PAP SMEAR 1982 Pap + HPV 1982 MAMMOGRAM 2001 Colonoscopy FOBT- Positive 2006 Colonoscopy 2006 Colorectal Cancer Screening 2006 FOBT 2006 Sigmoidoscopy 2006 Pneumonia Vaccine 50+ (1 of 1 - PCV) 2011 Zoster Vaccine (1 of 2) 2011 COVID-19 Vaccine (1 - 2023-2 5 season) 2024 INFLUENZA VACCINE (#1) 2025 RSV Immunization 60 Years an d Older OR (1 - 1-dose 75+ series) 01/14/2036 HPV VACCINES Aged Out No longer eligi ble based on patient's age to complete this topic IPV VACCINES Aged Out No longer eligi ble based on patient's age to complete this topic MENINGOCOCCAL B Aged Out No longer el igible based on patient's age to complete this topic ROTAVIRUS VACCINES Aged Out No longer eligible based on patient's age to complete this topic Care Teams Rigging Supervisor Relationship Specialty Start Date End Date Sohail Andrea MD [address] [place], [place] PCP - General 01/24/18
== END 2025-02-13 07:01 | disposition home or self-care (01) ==
LOC: HO.LNP 07:00
PROVIDERS: Visit Provider Internal Medicine
DX: K86.89 Other specified diseases of pancreas (principal); K52.9 Noninfective gastroenteritis and colitis, unspecified; R19.4 Change in bowel habit; Z80.0 Family history of malignant neoplasm of digestive organs
CPT/HCPCS: 82656; 82705

== ENCOUNTER 2025-02-22 07:15 | Outpatient (REF) | payer OTHER, SELFPAY ==
--- NOTE | ~2025-02-22 | MR_ITS ---
EXAMINATION: MR MRCP WITHOUT CONTRAST CLINICAL INFORMATION: K86.89 COMPARISON: Correlated to CT abdomen and pelvis dated January 24, 2025. TECHNIQUE: Axial and coronal T2 fat-sat HASTE. Axial and coronal T2 HASTE. Axial in and out of phase 3-D. MRCP radial T2 fat-sat. Coronal oblique T2 fat-sat single slice. 3-D space MRCP triggered. FINDINGS: Common bile duct measures 4 mm in maximum caliber with an abrupt cut off. The junction with the second portion of the duodenum. There is a questionable, intraluminal, 2.8 mm, hypointense T2 signal at the 9 o'clock position of the distal common bile duct. No intrahepatic biliary ductal dilatation. Absent gallbladder. Main pancreatic duct measures 2 mm in maximal caliber. Ancillary findings: Liver measures 14 cm. There is a 5 mm fluid signal characteristic lesion in the dome of the right hepatic lobe. Spleen measures 8 cm. Right kidney: 4 mm fluid signal characteristic lesion in the upper pole. No hydronephrosis. Left kidney: Focal 5 mm hypointense T2 signal in the posterior upper pole. No hydronephrosis. Abundant stool, large intestine. No ascites. No aneurysm, abdominal aorta. No gross retroperitoneal lymphadenopathy. No ascites. MR/MR MRCP IMPRESSION: Concerning/questionable choledocholithiasis, distal common bile duct. 5 mm cystic lesion, right hepatic lobe. Subcentimeter cyst, right kidney. Electronically signed by: Adiel Martines MD 02/22/2025 08:08 AM EDT
--- OUTSIDE RECORDS SUMMARY | 2025-02-22 07:18 | XMS_ITS | Encounter Summary ---
Author Organization [facility] Address [address] [place] [address] Care Team Providers Care Liberal Arts And Humanities Chair Name Role Phone Sohail Andrea MD Primary Care Provider [phone] Sohail Andrea MD Primary Care Provider [phone] Reason for Referral * OUTPT P&D-MED SOLUTIONS (Routine) - Closed Specialty Diagnoses / Procedures Referred By Bakari t Referred To Contact Magnetic Resonance Imaging Diagnoses Shoulder impingement syndrome Procedures REQUEST FOR MRI SHOULDER W AND W/O CONTRAST - RIGHT FC [facility] Orthopedic Surgery [address] [facility] [address] [place] [address] Phone: tel: fax: Referral ID Status Reason Start Date Expiration Date V isits Requested Visits Authorized [id number] Closed Specialty Services Required 04/08/2009 1 1 Encounter Details Date Type Department Care Team (Late st Contact Info) Description 04/08/2009 Orders Only [facility] Orthopedic Surgery [address] [facility] [address] [place] [phone] Esmer Whitmore LPN [address] [facility] [address] [place] [address] Social History Tobacco Use Types Packs/Day Years [...] classified documented in this encounter Care Teams Liberal Arts And Humanities Chair Relationship Specialty Start Date End Date Sohail Andrea MD [facility] [address] [place] [phone] PCP - General 07/27/09 Sohail Andrea MD [facility] [address] [place] [phone] PCP - General 10/03/05 07/26/09 documented as of this encounter
--- OUTSIDE RECORDS SUMMARY | 2025-02-22 07:18 | XMS_ITS | Clinical Summary ---
Author Organization [facility] behaview & [facility] lin Address [address] [place] [address] Care Team Providers Care Home Fire Alarm Installer Name Role Phone Pcp, No Primary Care Provider [phone] Social History Tobacco Use Types Packs/Day Years [...] Adults 18 yrs or above (or HM Modifier)([facility]) 1979 Hepatitis C Virus Infection in Adolescents and Adults: Screening (or Modifier) ([facility]) [address] [facility] Screening Reminder: Muriel story for all adults ([facility]) 1979 Tobacco Smoking Cessation: i n Adults excluding Women: Behavioral and Pharmacotherapy Interventions ([facility]) 1979 DTaP/Tdap/Td Vaccines ([facility]) (1 - Tdap) 01/14/1980 Cervical Cancer Screenin 1-65 yrs of age (or Modifier) 1982 Cervical Cancer Screening: P ap every 3 yrs pts age 21-65 1982 Cervical Cancer: Pap Screeni ng with Modifier timing ([facility]) 1982 Cervical Cancer: hrHPV alone or with cotesting Pap for Pts 30-65yrs screening every 5yrs ([facility]) 1982 Colorectal Cancer Screening 45 -75 Yrs (or HM Modifier ) 2006 Colorectal Cancer: FLEXIBLE SIGMOIDOSCOPY Screening every 5 yrs 2006 Colorectal Cancer: Fecal Imm unochemical Test (FIT) Annually [facility] 2006 Colorectal Cancer: High-sens itivity gFOBT Screening Annually [facility] 2006 Colorectal Cancer: Stool Col oguard Screening every 3 yrs 2006 Colorectal Cancer:CT Colonography Screening every 5 yr s 2006 Breast Cancer: Screening Muriel ually age 50-74 yrs (or HM Modifier)([facility]) 2011 Pneumococcal Vaccination Scr eening: Patients 50+ yrs of age ([facility]) (1 of 1 - PCV) 2011 Zoster/Shingles Vaccine Seri es Screening: Adults aged 18+ yrs (or HM Modifiers)([facility]) (1 of 2) 2011 COVID-19 Vaccine Screening: Initial Series and Booster Status ([facility]) (2023- season) 2024 Flu Vaccination: Yearly for ages 18mos through 64 years (or Modifier)([facility]) 02/09/2025 RSV Vaccines (1 - 1-dose 75+ series) 01/14/2036 Medical Devices Not on file Insurance [facility] Care Teams Home Fire Alarm Installer Relationship Specialty Start Date End Date Pcp, No PCP - General Family Medicine 10/22/20
--- OUTSIDE RECORDS SUMMARY | 2025-02-22 07:18 | XMS_ITS | Encounter Summary ---
Author Organization [facility] Address [address] [place] [address] Care Team Providers Care Viticulturist Name Role Phone Eduardo Parson MD Primary Care Provider [phone] Encounter Details Date Type Department Care Team (Latest Contact Info) Description 10/12/2022 Transcribe Orders [facility]erral [facility] [address] [place] [address] Sohail Andrea MD [address] [place] [address] Elevated AST (SGOT) (Primary Dx); Family history [...] Care Team (Late st Contact Info) Description 03/15/2025 7:30 AM EDT Appointment [facility] [address] [place] [address] Eri Chaney MD [address] [place] [address] 03/15/2025 8:00 AM EDT Appointment [facility] [address] [place] [address] Eri Chaney MD [address] [place] [phone] 12/11/2025 8:00 AM EDT Office Visit [facility] [address] [facility] [place] [place] [facility] [address] [place] [address] Eri Chaney MD [address] [place] [address] 02/27/2026 8:30 AM EDT Office Visit [facility] [address] [facility] Department [address] [facility] [place] [address] Eduardo Parson MD [address] [place] [phone] documented as of this encounter Visit Diagnoses Diagnosis Elevated AST (SGOT)- Primary Family history of malignant neoplasm of pancreas documented in this encounter Care Teams Viticulturist Relationship Specialty Start Date End Date Eduardo Parson MD [address] [place] [phone] PCP - General Family Medicine 11/08/24 documented as of this encounter
--- OUTSIDE RECORDS SUMMARY | 2025-02-22 07:18 | XMS_ITS | Clinical Summary ---
Author Organization [facility] Address [address] [facility] [address] [place] [address] Phone Care Team Providers Care Dividing Machine Operator Helper Name Role Phone Sohail Andrea MD Primary [...] topic Medical Devices Not on file Insurance [facility] [place] [id number] [employer] [employer] [employer] [place] [id number] [employer] [employer] [employer] [facility] Care Teams Dividing Machine Operator Helper Relationship Specialty Start Date End Date Sohail Andrea MD [address] [place] [address] PCP - General Family Medicine 02/21/18 Additional Source Comments The information contained in this document represents components of the legal health record. It is not the complete legal health record.[facility]
== END 2025-02-22 07:16 | disposition home or self-care (01) ==
LOC: HO.MRI 07:15
PROVIDERS: PCP Family Medicine; Visit Provider Psychiatry & Neurology Neurology
DX: K86.89 Other specified diseases of pancreas (principal)
CPT/HCPCS: 74181

== ENCOUNTER → 2025-02-22 07:23 | Outpatient (BNV) | payer OTHER, SELFPAY | PROVIDERS: PCP Family Medicine; Visit Provider Radiology Diagnostic Radiology | DX: K80.51 Calculus of bile duct without cholangitis or cholecystitis with obstruction (principal) | CPT/HCPCS: 74181 ==

== ENCOUNTER 2025-03-29 06:20 | Day surgery (SDC) | payer OTHER, SELFPAY ==
--- OUTSIDE RECORDS SUMMARY | 2025-02-19 08:15 | XMS_ITS | Clinical Summary ---
Author Organization [facility] Address [address] [facility] [place] [address] Phone Care Team Providers Care Intensive Care Specialist Name Role Phone Sohail Andrea MD Primary Care Provider [phone] Allergies No known active allergies Medications dexamethasone [...] age to complete this topic Care Teams Intensive Care Specialist Relationship Specialty Start Date End Date Sohail Andrea MD [address] [place], [place] PCP - General 01/24/18
--- OUTSIDE RECORDS SUMMARY | 2025-02-19 08:15 | XMS_ITS | Clinical Summary ---
Author Organization [facility] Address [address] [facility] [address] [place] [address] Phone Care Team Providers Care Motor Vehicle Technician Name Role Phone Sohail Andrea MD Primary [...] topic Medical Devices Not on file Insurance [facility] [place] [employer] [place] [id number] [place] [id number] [place] [id number] [employer] Care Teams Motor Vehicle Technician Relationship Specialty Start Date End Date Sohail Andrea MD [address] [place] [address] PCP - General Family Medicine 02/21/18 Additional Source Comments The information contained in this document represents components of the legal health record. It is not the complete legal health record.[facility]
[2025-03-27 09:41] VITALS: BMI 19.8
[2025-03-29 06:58] VITALS: BP 105/77; PULSE 81; RESP 14; TEMP 36.6; O2SAT 99; BMI 19.5
[2025-03-29] MEDS: Lactated Ringers 1,000 ML 100 ML IVCONT (07:01)
--- NOTE | 2025-03-29 07:19 | P.CONAN_ITS ---
Documented by User: Shasta Womack NP 03/28/25 08:51 HPI - Anesthesia Eval Consult details Narrative: 65 yr old female for upper endoscopy PMF Active Problems Active Problems: All Active Problems (Updated 03/13/25 @ 11:52 by Joann Soto MD) Choledocholithiasis (Acute) Pancreatic duct dilated (Acute) Family history of pancreatic cancer (Acute) Change in bowel habit (Acute) Chronic diarrhea (Acute) Past Medical History Medical History (Updated 03/29/25 @ 06:57 by Eri Mata RN) History of endometrial biopsy Surgical History Surgical History Hx of colonoscopy (2021) Social History Social History Patient Tobacco Use Status: Never used Tobacco Use of substances other than those prescribed or required for medical reasons: No Have you been hit, kicked, punched, or otherwise hurt by someone within the past year? If so, by whom?: No Are you DNR?: No Advance Directives: No Advance Directives Information Provided: Yes Patient : No : No Poor oral hygiene: No Meds Allergies Allergy/AdvReac Type Severity Reaction Status Date / Time No Known Allergies Allergy Verified 03/29/25 06:57 Exam Height,Weight and Vital Signs: Height 5 ft Weight 46 kg Documented by User: Lori Montes DO 03/29/25 07:21 HPI - Anesthesia Eval Consult details Narrative: 65 yr old female for upper endoscopy and colonoscopy [facility] Past Medical History Medical History (Updated 03/29/25 @ 06:57 by Eri Mata RN) History of endometrial biopsy Family History Family history of problems with anesthesia: No Surgical History Surgical History Hx of colonoscopy (2021) History of Problems with Anesthesia: No Social History Social History Patient Tobacco Use Status: Never used Tobacco Use of substances other than those prescribed or required for medical reasons: No Have you been hit, kicked, punched, or otherwise hurt by someone within the past year? If so, by whom?: No Are you DNR?: No Advance Directives: No Advance Directives Information Provided: Yes Patient : No : No Poor oral hygiene: No Meds Allergies Allergy/AdvReac Type Severity Reaction Status Date / Time No Known Allergies Allergy Verified 03/29/25 06:57 Exam Exam Date and Time: 03/29/25 0715 Height,Weight and Vital Signs: Height 5 ft Weight 46 kg Vital Signs Temperature 97.9 F 03/29/25 06:58 Pulse Rate 81 03/29/25 06:58 Respiratory Rate 14 03/29/25 06:58 Blood Pressure 105/77 03/29/25 06:58 Pulse Oximetry 99 03/29/25 06:58 Oxygen Delivery Method Room Air 03/29/25 06:58 Temperature 97.9 F 03/29/25 06:58 Pulse Rate 81 03/29/25 06:58 Respiratory Rate 14 03/29/25 06:58 Blood Pressure 105/77 03/29/25 06:58 Pulse Oximetry 99 03/29/25 06:58 Oxygen Delivery Method Room Air 03/29/25 06:58 Airway Mallampati Class: II TM Dist: >3cm Neck ROM: Full Loose/Missing/Broken Teeth: No (patient denies any loose or broken teeth) Heart: S1S2 Lungs: CTAB Assessment and Plan Assessment Anesthesia Assessment: Anesthesia Plan Discussed and Chart Reviewed Final Anesthetic Review Family History of Problems with Anesthesia: No History of Problems with Anesthesia: No NPO: Yes ASA Class: I Final Preanesthetic Review: No Changes in Pt Med Stat, Meds/Allgs Chart Reviewed, Consent Obtained/Reviewed and Anes Risks/Benef Reviewed Patient Risk: Low Procedure Risk: Low Anesthetic Plan Anesthetic Plan: MAC: and Agree w/ Assess. and Plan Disposition: Standard PACU
--- NOTE | 2025-03-29 07:52 | MHC.SHP ---
Pre-Procedural Eval Section A - 24 Hr Update-Section A only Date of Service: 03/29/25 Section B - Complete if H&P > 30 days Chief Complaint: Change in bowel habit, chronic diarrhea Present Medications: see Short Stay Collaborative assessment Medical History: No relevant PMH History of Previous Operations: No relevant previous surgery Allergies: Allergies Allergy/AdvReac Type Severity Reaction Status Date / Time No Known Allergies Allergy Verified 03/29/25 06:57 Review of Systems Review of Systems Comment: Ten point ROS negative Exam Exam Comment: Gen appear: No acute distress HEENT: no icterus Chest: No overt resp distress Abd: soft, nontender, nondistended Psych: Stable affect, answering questions appropriately Neuro: A/Ox3 noted to move all extremities spontaneously Ext: no peripheral edema Plan Diagnosis/Plan: Unchanged I have reviewed the history and physical and performed a pertinent physical examination on my patient. No changes have occurred unless specified. Time Spent With Patient Time: Total time managing care of this patient today ____ minutes.
[2025-03-29 08:28] VITALS: BP 102/58; PULSE 79; RESP 15; TEMP 36.6; O2SAT 96
--- NOTE | 2025-03-29 08:34 | P.OPN-COLO_ITS ---
Colonoscopy Operative Note Operative Note Date of Service: 03/29/25 Narrative: Procedure: Upper endoscopy and colonoscopy Indication: Change in bowel habits, chronic diarrhea Endoscopist: Joann Soto MD Anesthesia Provider: Zaida Villalobos Anesthesia type: MAC Instrument: [id number] and [id number]-[id number] EGD Procedure:?? The procedure, indications, preparation and potential complications were reviewed with the patient, who indicated understanding and gave written informed consent to proceed. The endoscope was introduced through the mouth, and advanced to the 2nd part of the duodenum. The mucosa was carefully examined on slow withdrawal of the endoscope. The patient tolerated the procedure well. There were no immediate complications.? EGD Findings:? * Esophagus:? Normal esophageal mucosa was noted. The Z-line was at 40 cm. * Stomach:? Prominent rugae, linear erythema and erosions in the fundus and body with relative sparing of antrum. Retroflexion was performed in the cardia. Cold forceps mapping biopsies were taken from the stomach as per Julienne protocol. * Duodenum:? Normal duodenal mucosa. Cold forceps biopsies were taken from the duodenal bulb and 2nd portion of the duodenum to rule out celiac sprue. Colonoscopy Procedure:? The patient was then turned for the colonoscopy. A digital rectal exam was performed which was abnormal for external hemorrhoids.? A distal attachment cap was affixed to the tip of the scope and the colonoscope was then inserted through the anus and advanced through the colon and advanced to the cecum at 75 cm and terminal ileum.? Appendiceal orifice and ileocecal valve were identified. Mucosa was carefully examined under high definition white light as the instrument was slowly withdrawn in a retrograde panoramic fashion. Retroflexion was performed in rectum. The procedure was not difficult. The quality of the prep was BBPS: 2+3+3 = adequate Withdrawal time 8 minutes Limitations: No limitations Findings: Mucosa: Normal colon and terminal ileum mucosa. Cold forceps biopsies were taken in the right and left side of the colon to evaluate for microscopic colitis Protruding lesions: * One sessile polyp of size 2 mm in ascending colon. Cold forceps polypectomy was performed. The polyp was completely removed and retrieved. * Medium internal hemorrhoids without stigmata of recent bleeding. Impression: 1. Normal esophagus 2. Gastritis (biopsy) 3. Normal duodenum (biopsy) 4. Normal colon and terminal ileum mucosa (biopsy) 5. Total 1 polyp removed 6. Internal and external hemorrhoids Recommendations:?? * Follow-up path results * Avoid NSAIDs * H Pylori treatment if biopsies + * Start PPI therapy * Repeat colonoscopy for asymptomatic CRC screening in 7-10 years.
[2025-03-29 08:43] VITALS: BP 114/76; PULSE 80; RESP 16; O2SAT 99
[2025-03-29 08:57] VITALS: BP 128/74; PULSE 75; RESP 16; TEMP 36.4; O2SAT 100
== END 2025-03-29 09:18 | disposition home or self-care (01) ==
PROVIDERS: PCP Family Medicine; Visit Provider Internal Medicine
PROC: (CPT 45380; principal; 2025-03-29 07:30)
DX: R19.4 Change in bowel habit (principal); Z80.0 Family history of malignant neoplasm of digestive organs; K51.40 Inflammatory polyps of colon without complications; K57.30 Diverticulosis of large intestine without perforation or abscess without bleeding; K64.8 Other hemorrhoids; K64.4 Residual hemorrhoidal skin tags; K52.9 Noninfective gastroenteritis and colitis, unspecified; K86.89 Other specified diseases of pancreas; K29.80 Duodenitis without bleeding; K29.50 Unspecified chronic gastritis without bleeding; Z87.891 Personal history of nicotine dependence
CPT/HCPCS: 45380; 43239; 88305; 88313; 88342; J2003; J2704; J3010

== ENCOUNTER → 2025-03-29 06:20 | Outpatient (BNV) | payer OTHER, SELFPAY | PROVIDERS: PCP Family Medicine; Visit Provider Internal Medicine | DX: K52.9 Noninfective gastroenteritis and colitis, unspecified (principal); D12.2 Benign neoplasm of ascending colon; K64.8 Other hemorrhoids; K29.70 Gastritis, unspecified, without bleeding | CPT/HCPCS: 43239; 45380 ==

== ENCOUNTER 2025-04-09 09:43 | Outpatient (AMB) | payer OTHER, SELFPAY ==
--- NOTE | 2025-04-09 09:45 | MHC.OFFVIS ---
Vital Signs 04/09/25 09:52 Height 5 ft Weight 99 lb 3.328 oz BMI 19.4 BP 128/66 Blood Pressure Location Lt brachial Position Sitting Pulse 79 Intake Visit Reasons: S/p double Intake Note: Bhumika presents in the office as a follow up EGD and COLO. CC: She states that she is just here for results and concerns of what is going to happen next. Manager Of Employee Relations Required: No Allergies No Known Allergies Allergy (Verified 04/09/25 09:46) HPI Comments Details: 64 y.o F with no significant PMH who is here for chronic diarrhea. Started almost 6 months ago. Reports urgency to defecate shortly after eating within 30-60 mins with abd cramping and discomfort. Night time sx +. Stools are watery. 3-4 times a day. Has lost a few lbs because of this. Has tried to eliminate certain foods without any change in sx. Once she has a BM no further cramping. No fevers or chills. No sick contacts. No travel hx. No new meds, in fact does not take any prescription meds. Last colo was 2021. Done at [facility]. Was told normal, and recall was 10 years. Fam hx: sister: breast sister at age 64 sister: panc ca at age 49. No hx of IBD or CRC in fam. Former smoker - remote hx. Drinks etOH 3-4 times a week 1 drink per day. 02/12/25: Seen in follow up. Reports unchanged sx of post prandial discomfort and diarrhea. Blood work and stool testing reviewed. Overall normal. CT reviewed, borderline PD dilation. To recall, pt with fam hx of pancreatic ca. Borderline dilation of the pancreatic duct in the body of the pancreas. No clear etiology is identified and it can be age-related. No masses identified and no peripancreatic fat stranding or heterogeneity is present suggestive. 04/02/25: EGD/colo: 1. Normal esophagus 2. Gastritis (biopsy) 3. Normal duodenum (biopsy) 4. Normal colon and terminal ileum mucosa (biopsy) 5. Total 1 polyp removed 6. Internal and external hemorrhoids Path: A. Duodenum, biopsy: Chronic inactive duodenitis. B. Stomach, antrum lesser curvature, biopsy: Antral-type and oxyntic mucosa with mild chronic inactive inflammation; no Helicobacter organisms seen. C. Stomach, antrum greater curvature, biopsy: Antral-type and oxyntic mucosa with mild chronic inactive inflammation; no Helicobacter organisms seen. D. Stomach, incisura, biopsy: Oxyntic mucosa with mild chronic inactive inflammation; no Helicobacter organisms seen. E. Stomach, body lesser curvature, biopsy: Oxyntic mucosa with mild chronic inactive inflammation; no Helicobacter organisms seen. F. Stomach, body greater curvature, biopsy: Oxyntic mucosa with mild chronic inactive inflammation; no Helicobacter organisms seen. G. Colon, right, biopsy: Inflamed colonic mucosa with features of lymphocytic and collagenous colitis. H. Colon, ascending, polypectomy: Inflammatory polyp. I. Colon, left, biopsy: Inflamed colonic mucosa with features of lymphocytic and collagenous colitis. COMMENT: Lymphocytic colitis is a non-specific pattern of inflammation. The differential diagnosis includes idiopathic lymphocytic/microscopic colitis, drug effect, resolving infection, and severe cases of celiac disease. 04/09/25: Here for post EGD colonoscopy follow-up. Results reviewed with the patient, reviewed that gastritis is non H pylori related. Continue omeprazole for 8-12 weeks and can then discontinue. Colonoscopy biopsies are positive for microscopic colitis. Will favor treatment with Imodium as 1st line, and if no improvement within 1-2 weeks, will start budesonide. Pt had CT abd/pel done for question of pancreatic duct dilation. A follow up MRCP was also done 02/22 that shows abrupt cut off of CBD in the distal section with a questionable intraluminal defect. She is awaiting a repeat MRCP as images are ambiguous. [facility] Medical History (Updated 04/09/25 @ 12:55 by Joann Soto MD) History of endometrial biopsy Surgical History Hx of colonoscopy (2021) Social History Patient Tobacco Use Status: Never used Tobacco Review of Systems Const All systems reviewed & are unremarkable except as noted in HPI and below Physical Exam Exam Exam: No apparent distress Nonicteric Abdomen soft, nondistended Alert and oriented x3, normal gait Vital Signs: Last Vital Signs Pulse 79 04/09/25 09:52 BP 128/66 04/09/25 09:52 BMI result Body Mass Index 19.4 Assessment & Plan Assessment & Plan (1) Microscopic colitis: Code(s): K52.839 - Microscopic colitis, unspecified Category: Medical (2) Chronic diarrhea: Code(s): K52.9 - Noninfective gastroenteritis and colitis, unspecified Category: Medical (3) Choledocholithiasis: Code(s): K80.50 - Calculus of bile duct without cholangitis or cholecystitis without obstruction Category: Medical (4) Pancreatic duct dilated: Code(s): K86.89 - Other specified diseases of pancreas Category: Medical (5) Family history of pancreatic cancer: Code(s): Z80.0 - Family history of malignant neoplasm of digestive organs Category: Medical (6) Change in bowel habit: Code(s): R19.4 - Change in bowel habit Category: Medical Plan Reviewed results of egd/colo - confirms microscopic colitis -- reviewed options that can start imodium and review response or start with budesonide directly. Pt prefers to start with Imodium. If minimal improvement, can then switch to budesonide. In terms of question of CBD filling effect - repeat MRCP pending. Authorization secured and waiting on OF. Plan: - Start imodium BID to TID - Review response over the phone or portal in 1-2 weeks - MRCP pending - Follow up after MRCP to review indication for ERCP if has persistent filling defect. Medications: New loperamide (Imodium A-D) 2 mg PO TID 90 caps 0RF loose stool Coding Level of Care Code Est Pt Level 4 (84171) Diagnoses Microscopic colitis K52.839 Chronic diarrhea K52.9 Choledocholithiasis K80.50 Pancreatic duct dilated K86.89 Family history of pancreatic cancer Z80.0 Change in bowel habit R19.4
[2025-04-09 09:52] VITALS: BP 128/66; PULSE 79; BMI 19.4
--- OUTSIDE RECORDS SUMMARY | 2025-04-09 10:38 | XMS_ITS | Encounter Summary ---
Author Organization [facility] Address [address] [place] [address] Care Team Providers Care Jewelry Sales Name Role Phone Sohail Andrea MD Primary Care Provider [phone] Sohail Andrea MD Primary Care Provider [phone] Reason for Referral * Specialty Diagnoses / Procedures Referred By Contac t Referred To Contact Diagnoses CONTUSION OF RIBS Sohail Andrea MD Phone: tel: fax: Referral ID Status Reason Start Date Expiration Date Visits Re quested Visits Authorized Encounter Details Date Type Department Care Team (Late st Contact Info) Description 04/21/2007 Orders Only [facility] [address] [place] [phone] Sohail Andrea MD [facility] [address] [place] [address] Social History Tobacco Use Types Packs/Day Years Used Date Smoking Tobacco: Never Assessed Comments Unknown Sex and Gender Information Value Date Recorded Sex Assigned at Not on file Legal Sex Female 2:02 PM EDT Gender Identity Not on file Sexual Orientation Not on file documented as of this encounter Plan of Treatment Scheduled Referrals Name Type Priority Associated Diagnoses Orde r Schedule CONSULT CHIROPRACTIC NON-FC Referral Routine CONTUSION OF RIBS 04/21/2007 documented as of this encounter Visit Diagnoses Diagnosis CONTUSION OF RIBS- Primary Contusion of chest wall documented in this encounter Care Teams Jewelry Sales Relationship Specialty Start Date End Date Sohail Andrea MD [facility] [address] [place] [address] PCP - General 07/27/09 Sohail Andrea MD [facility] [address] [place] [phone] PCP - General 10/03/05 07/26/09 documented as of this encounter
--- OUTSIDE RECORDS SUMMARY | 2025-04-09 10:38 | XMS_ITS | Encounter Summary ---
Author Organization [facility] Address [address] [place] [address] Care Team Providers Care Synchronizer Name Role Phone Sohail Andrea MD Primary Care Provider [phone] Sohail Andrea MD Primary Care Provider [phone] Encounter Details Date Type Department Care Team ([facility] st Contact Info) Description 05/01/2009 Orders Only [facility] Orthopedic Surgery [address] [place] [address] [address] [place] [address] Wilbert Mays MD [facility] Sports Medicine [address] [place] [address] Social History Tobacco Use Types Packs/Day Years Used Date Smoking Tobacco: Never Alcohol Use Standard Drinks/Week Comments Yes 0 (1 standard drink = 0.6 oz pur e alcohol) socialy Comments No Sex and Gender Information Value Date Recorded Sex Assigned at Not on file Legal Sex Female 2:02 PM EDT Gender Identity Not on file Sexual Orientation Not on file Occupation Industry Job Start Date Job End Date Not on file Not on file Not on file Not on file documented as of this encounter Plan of Treatment Not on file documented as of this encounter Visit Diagnoses Diagnosis Shoulder impingement syndrome- Primary Other affections of shoulder region, not elsewhere classified documented in this encounter Care Teams Synchronizer Relationship Specialty Start Date End Date Sohail Andrea MD [facility] [address] [place] [phone] PCP - General 07/27/09 Sohail Andrea MD [facility] [address] [place] [phone] PCP - General 10/03/05 07/26/09 documented as of this encounter
--- OUTSIDE RECORDS SUMMARY | 2025-04-09 10:38 | XMS_ITS | Clinical Summary ---
Author Organization [facility] Address [address] [facility] [address] [place] [address] Phone Care Team Providers Care Lead Quality Control Technician Name Role Phone Sohail Andrea MD [...] years) (1 of 1 - PCV) 2011 INFLUENZA VACCINE (#1) 2025 , 04/14/2019, 04/12/2018 COVID-19 VACCINE (3 - 2024-2 6 season) 2025 11/26/2020, 11/05/2020 RSV VACCINE (1 - 1-dose [...] topic Medical Devices Not on file Insurance [facility] Address: [place] [address] [id number] [facility] Address: [facility] [id number] [phone] [facility] [address] [id number] [facility] Care Teams Lead Quality Control Technician Relationship Specialty Start Date End Date Sohail Andrea MD [address] [place] [address] PCP - General Family Medicine 02/21/18 Additional Source Comments The information contained in this document represents components of the legal health record. It is not the complete legal health record.[facility]
--- OUTSIDE RECORDS SUMMARY | 2025-04-09 10:38 | XMS_ITS | Clinical Summary ---
Author Organization [facility] Address [address] [facility] [place] [address] Phone Care Team Providers Care Cherry Sorter Name Role Phone Sohail Andrea MD Primary Care Provider [phone] Allergies No known active allergies Medications dexamethasone [...] COVID-19 Vaccine (1 - 2023-2 5 season) 2025 INFLUENZA VACCINE (#1) 2025 RSV Immunization 60 [...] age to complete this topic Care Teams Cherry Sorter Relationship Specialty Start Date End Date Sohail Andrea MD [address] [place], [place] PCP - General 01/24/18
--- OUTSIDE RECORDS SUMMARY | 2025-04-09 10:38 | XMS_ITS | Referral Summary ---
Author Organization [facility] r Address [address] [place] [address] Phone Care Team Providers Care Box Truck Washer Name Role Phone Sohail Andrea MD Primary Care Provider [phone] Allergies No known active allergies Medications dexamethasone [...] Mass Index - - Plan of Treatment Not on file Care Teams Box Truck Washer Relationship Specialty Start Date End Date Sohail Andrea MD [address] [place], [place] PCP - General 01/24/18
--- OUTSIDE RECORDS SUMMARY | 2025-04-09 10:38 | XMS_ITS | Encounter Summary ---
Author Organization [facility] Address [address] [place] [address] Care Team Providers Care Wreath And Garland Maker Name Role Phone Sohail Andrea MD Primary Care Provider [phone] Sohail Andrea MD Primary Care Provider [phone] Reason for Referral * OUTPT P&D-MED SOLUTIONS (Routine) - Closed Specialty Diagnoses / Procedures Referred By Bakari t Referred To Contact Magnetic Resonance Imaging Diagnoses Shoulder impingement syndrome Procedures REQUEST FOR MRI SHOULDER W AND W/O CONTRAST - RIGHT FC [facility] [address] [facility] [address] [place] [address] Phone: tel: fax: Referral ID Status Reason Start Date Expiration Date V isits Requested Visits Authorized [id number] Closed Specialty Services Required 04/08/2009 1 1 Encounter Details Date Type Department Care Team (Late st Contact Info) Description 04/08/2009 Orders Only [facility] [address] [facility] [address] [place] [phone] Esmer Whitmore LPN [address] [facility] [address] [place] [address] Social History Tobacco Use Types Packs/Day Years [...] classified documented in this encounter Care Teams Wreath And Garland Maker Relationship Specialty Start Date End Date Sohail Andrea MD [facility] [address] [place] [phone] PCP - General 07/27/09 Sohail Andrea MD [facility] [address] [place] [phone] PCP - General 10/03/05 07/26/09 documented as of this encounter
--- OUTSIDE RECORDS SUMMARY | 2025-04-09 10:38 | XMS_ITS | Clinical Summary ---
Author Organization [facility] Address [address] [place] [address] Care Team Providers Care Curriculum Development Manager Name Role Phone Sohail Santos MD Primary Care Provider [phone] Allergies No known active allergies Medications * This document contains information received from the source organization and may not represent a complete record from that organization. MULTI-VITAMIN OR TABS 1 TABLET DAILY Active Calcium + D 600-200 MG-UNIT OR TABS 1 TABLET DAILY Active Escitalopram Oxalate (LEXAPRO) 10 MG OR TABS 1 1/2 po QAM 45 2 06/13/2009 Active Active Problems Problem Noted Date Diagnosed Date Other affections of shoulder region, not elsewhere classified 06/13/2009 Overview (11/10/2013): , Osteoporosis screening 06/02/2009 Overview (06/02/2009): BMD normal 05/20 Next at 66yo Rotator cuff (capsule) sprain 02/25/2009 Endometriosis 11/03/2006 Overview (06/07/2015): 12/01/2005 KELLEE BROWN MD , Major depressive disorder, single episode, moder ate 04/02/2006 Overview (01/24/2008): 04/02/2006 [facility] Psoriasis 03/22/1995 Overview (01/24/2008): 03/22/1995 Miguel BLEDSOE M.D. Immunizations Immunization Administration Dates Next Due Influenza,seasonal,trivalent,preservative (FLUZO NE MDV) 05/18/2006 Family History Medical History Relation Name Comments Cancer - Breast Neg Hx Social History Tobacco Use Types Packs/Day Years [...] file Not on file Not on file Last Filed Vital Signs Vital Sign Reading Time Taken Comments Blood Pressure 102/62 07/18/2009 10:12 AM EST Pulse 60 07/18/2009 10:12 AM EST Temperature 36.8 C (98.2 F) 05/17/2009 10:05 AM EST Respiratory Rate 14 05/17/2009 10:05 AM EST Oxygen Saturation - - Inhaled Oxygen Concentration - - Weight 57.2 kg (126 lb) 05/17/2009 10:05 AM EST Height 152.4 cm (5') 05/17/2009 10:05 AM EST Body Mass Index 24.61 05/17/2009 10:05 AM EST Plan of Treatment Health Maintenance Due Date Last Done Comments Hepatitis C Screening 1960 DTaP/Tdap/Td (1 - Tdap) 1979 Pneumococcal 50+ years (1 of 1 - PCV) 2011 Zoster (Shingrix) (1 of 2) 2011 Pap Smear 04/19/2012 04/19/2009, 1001/2008, 12/15/2006, Additional history exists Mammogram/Breast Imaging 11/22/2014 014, 08/05/2012, 07/07/2011, Additional history exists COVID-19 Vaccine ( - 2023- season) 2025 Influenza (#1) 2025 05/18/2006 RSV (1 - 1-dose 75+ series) 01/14/2036 HPV Vaccine (No Doses Required) Completed Hep A Aged Out No longer eligi ble based on patient's age to complete this topic Hep B Aged Out No longer eligi ble based on patient's age to complete this topic Hib Aged Out No longer eligi ble based on patient's age to complete this topic Meningococcal ACWY Aged Out No longer eligible based on patient's age to complete this topic Zoster (Zostavax) Discontinued Procedures * Due to [place] 1Cast law, this organization might not be sharing negative HIV tests. Procedure Name Priority Date/Time Associated Diagnosis Comments DIGITAL SCREENING MAMMO Routine 11/22/2013 7:10 AM EDT LIQUID-BASED PAP WITH HPVH Routine 04/19/2009 from Last 3 Months or Most Recently Relevant to Health Maintenance Results * Due to [place] 1Cast law, this organization might not be sharing negative HIV tests. * DIGITAL SCREENING MAMMO (11/22/2013 7:10 AM EDT) RADIOLOGY REPORT DEPARTMENT OF RADIOLOGY Patient: BHUMIKA SANDOVAL Unit #: [id number] Ordering MD: SOHAIL SANTOS MD : 1960 Procedure: Digital Screening Mammo Age: 53 Location: C[facility] Exam Date: 11/22/13 Status: REG CLI Room/Bed: Primary MD: Patient Order: [id number] Additional Copy: SOHAIL SANTOS MD #[id number] - DIGSCRMAM #BILATERAL DIGITAL SCREENING MAMMOGRAM WITH CAD: 11/22/2013 CLINICAL: Routine. Comparison is made to exams dated: 08/05/2012 mammogram - [facility] and 07/07/2011 mammogram - [facility]. There are scattered fibroglandular elements in both breasts. Current study was also evaluated with a Computer Aided Detection (CAD) system. No significant masses, calcifications, or other findings are seen in either breast. There has been no significant interval change. IMPRESSION: NEGATIVE There is no mammographic evidence of malignancy. A 1 year screening mammogram is recommended. POI: GIUSEPPE Alonso. Electronically signed by: Nathalia turner/zeus:11/24/19 14 11:24:36 letter sent: A-Normal Benign Mammogram BI-RADS: 1 Negative [facility] RAD Anatomical Region Laterality Modality Other 11/22/2013 7:10 AM EDT Narrative 11/23/2013 5:57 PM EDT Reason for Study/History: Routine. TEST(S) PROCESSED BY DESIRE CARRILLO Sohail Santos MD IMAGING-DESIRE Final Result * LIQUID-BASED PAP WITH HPVH (04/19/2009) LIQUID-BASED PAP WITH HPVH SEE TEXT [facility] Comment: THINPREP PAP TEST WITH HPV SOURCES: CERVIX, ENDOCERVIX CLINICAL HISTORY: LMP: NOT GIVEN NORMAL EXAM ADDITIONAL INFORMATION DEPO PROVERA LPS 04/17/2008 - ENDOMETRIOSIS STATEMENT OF ADEQUACY: SATISFACTORY, ENDOCERVICAL/TRANSFORMATION ZONE COMPONENT IS PRESENT RESULT: NEGATIVE FOR INTRAEPITHELIAL LESION OR MALIGNANCY HPV DNA TEST: NOT DETECTED HIGH/INTERMEDIATE RISK HPV DNA SUBTYPES (16,18,31,33,35,39,45, 51,52,56,58,59,68) ARE NOT DETECTED. THE ANALYTICAL PERFORMANCE CHARACTERISTICS OF THIS ASSAY, WHEN USED TO TEST SUREPATH OR VAGINAL SPECIMENS, HAVE BEEN DETERMINED BY [facility]. COMMENTS: THIS PAP TEST HAS BEEN EVALUATED WITH COMPUTER ASSISTED TECHNOLOGY. HPV PERFORMED AT [facility], [address] [place] [address], RAGINI MCDONNELL M.D., DIRECTOR RESULT DATE: 04/23/2009 TECHNOLOGIST: GYNECOLOGICAL CYTOLOGY IS A SCREENING PROCEDURE SUBJECT TO BOTH FALSE NEGATIVE AND FALSE POSITIVE RESULTS. IT IS MOST RELIABLE WHEN A SATISFACTORY SAMPLE IS OBTAINED ON A REGULAR REPETITIVE BASIS. RESULTS MUST BE INTERPRETED IN THE CONTEXT OF HISTORIC AND CURRENT CLINICAL INFORMATION. 04/19/2009 04/19/2009 9:1 1 PM EDT Narrative [facility] - 04/24/2009 7:33 AM EDT Report Comments: THIS PAP TEST HAS BEEN EVALUATED WITH COMPUTER ASSISTED TECHNOLOGY. HPV PERFORMED AT [facility], [address] [place] [address], RAGINI MCDONNELL M.D., DIRECTOR [facility]-INTERFACED Final Result [facility] [address] [place] [address] from Last 3 Months or Most Recently Relevant to Health Maintenance Insurance [facility] FFS SELECT CARE (HMO) * Guarantor: BHUMIKA SANDOVAL Account Type Relation to Patient Date of Phone Billing Address [facility] [address] [place] [id number] [employer] * Guarantor: [facility] Account Type Relation to Patient Date of Phone Billing Address [employer] [facility] ATTN: A/P [address] [address] Care Teams Curriculum Development Manager Relationship Specialty Start Date End Date Sohail Santos MD [facility] [address] [place] [phone] PCP - General 07/27/09
--- OUTSIDE RECORDS SUMMARY | 2025-04-09 10:38 | XMS_ITS | Encounter Summary ---
Author Organization [facility] Address [address] [place] [address] Care Team Providers Care Marketing Performance Analyst Name Role Phone Eduardo Parson MD Primary Care Provider [phone] Encounter Details Date Type Department Care Team (Latest Contact Info) Description 10/12/2022 Transcribe Orders [facility] Physician Referral Services [address] [place] [address] Sohail Andrea MD [address] [place] [address] Elevated AST (SGOT) (Primary Dx); Family history [...] Care Team (Late st Contact Info) Description 12/11/2025 8:00 AM EDT Office Visit [facility] [address] [facility] Gy[facility] [address] [place] [address] Eri Chaney MD [address] [place] [address] 02/27/2026 8:30 AM EDT Office Visit [facility] [address] [facility] Department [address] [facility] [place] [address] Eduardo Parson MD [address] [place] [address] documented as of this encounter Visit Diagnoses Diagnosis Elevated AST (SGOT)- Primary Family history of malignant neoplasm of pancreas documented in this encounter Care Teams Marketing Performance Analyst Relationship Specialty Start Date End Date Eduardo Parson MD [address] [place] [address] PCP - General Family Medicine 11/08/24 documented as of this encounter
--- OUTSIDE RECORDS SUMMARY | 2025-04-09 10:38 | XMS_ITS | Clinical Summary ---
Author Organization [facility] Address [address] [place] [address] Care Team Providers Care Director Occupational Name Role Phone Pcp, No Primary Care Provider [phone] Social History Tobacco Use Types Packs/Day Years [...] Adults 18 yrs or above (or HM Modifier)([facility]) 1979 Hepatitis C Virus Infection in Adolescents and Adults: Screening (or Modifier) ([facility]) [address] [facility] Screening Reminder: Muriel story for all adults ([facility]) 1979 Tobacco Smoking Cessation: i n Adults excluding Women: Behavioral and Pharmacotherapy Interventions ([facility]) 1979 DTaP/Tdap/Td Vaccines ([facility]) (1 - Tdap) 01/14/1980 Cervical Cancer Screenin 1-65 yrs of age (or Modifier) 1982 Cervical Cancer Screening: P ap every 3 yrs pts age 21-65 1982 Cervical Cancer: Pap Screeni ng with Modifier timing ([facility]) 1982 Cervical Cancer: hrHPV alone or with cotesting Pap for Pts 30-65yrs screening every 5yrs ([facility]) 1982 Colorectal Cancer Screening 45 -75 Yrs (or HM Modifier ) 2006 Colorectal Cancer: FLEXIBLE SIGMOIDOSCOPY Screening every 5 yrs 2006 Colorectal Cancer: Fecal Imm unochemical Test (FIT) Annually [facility] 2006 Colorectal Cancer: High-sens itivity gFOBT Screening Annually [facility] 2006 Colorectal Cancer: Stool Col oguard Screening every 3 yrs 2006 Colorectal Cancer:CT Colonography Screening every 5 yr s 2006 Breast Cancer: Screening Muriel ually age 50-74 yrs (or HM Modifier)([facility]) 2011 Pneumococcal Vaccination Scr eening: Patients 50+ yrs of age ([facility]) (1 of 1 - PCV) 2011 Zoster/Shingles Vaccine Seri es Screening: Adults aged 18+ yrs (or HM Modifiers)([facility]) (1 of 2) 2011 Flu Vaccination: Yearly for ages 18mos through 64 years (or Modifier)([facility]) 02/09/2025 COVID-19 Vaccine Screening: Initial Series and Booster Status ([facility]) ( - 2023- season) 2025 RSV Vaccines (1 - 1-dose 75+ series) 01/14/2036 Medical Devices Not on file Insurance [facility] Care Teams Director Occupational Relationship Specialty Start Date End Date Pcp, No PCP - General Family Medicine 10/22/20
--- OUTSIDE RECORDS SUMMARY | 2025-04-09 10:38 | XMS_ITS | Encounter Summary ---
Author Organization [facility] Address [address] [place] [address] Care Team Providers Care Slab Installer Name Role Phone Eduardo Parson MD Primary Care Provider [phone] Encounter Details Date Type Department Care Team (Late st Contact Info) Description 02/16/2025 Results Follow-Up [facility] [address] [facility] Department [address] [place] [address] [place] [phone] Katy Robbins, SEISMOGRAPH COMPUTER [address] [place] [address] Social History Tobacco Use Types Packs/Day Years Used Date Smoking Tobacco: Never Passive Smoke Exposure: Never Smokeless Tobacco: Never Alcohol Use Standard Drinks/Week Comments Yes 4 (1 standard drink = 0.6 oz pur e alcohol) [facility] Utilities Answer Date Recorded In the [...] Miscellaneous Notes * Result Encounter Note - Eduardo Parson MD - 02/21/2025 12:14 PM EDT Discussed results with patient at her last visit. The testing of your complete blood count, or CBC, was normal. CBC testing typically includes white blood cells, red blood cells with hemoglobin, and platelets. Abnormalities in white blood cells may demonstrate systemic infection or inflammation, abnormalities in red blood cells or hemoglobin may indicate anemias, and abnormalities with platelets may explain bleeding problems or be due to inflammation. Your hemoglobin A1c, an average value of your blood glucose over a 3-month period, was 6.0 % which is higher compared to the previous value. Normal A1c is 5.6% and under, 5.7-6.4% is considered to bein the pre-diabetic range, and 6.5% or higher is the diabetic range. May be related to recent outside pancreatic findings. Your AST level came back normal but higher than your ALT, while your ALT was still in the normal range. This kind of pattern can sometimes be connected to alcohol use, especially if it???s a regular part of your routine. It's also worth noting that certain rjzh-zxc-naqouhs medications like acetaminophen (Tylenol) can add to liver strain, especially when combined with alcohol. This result doesn???t mean there???s serious liver damage right now, but it is a signal that your liver might be under some stress. The good news is that the liver is very resilient, and changes likecutting back on alcohol and avoiding medications that can affect the liver can really help it recover. We should recheck this in 6 months. One of your proteins was elevated; sometimes it???s a sign of inflammation. I???d like to repeat itagain in a month. Your electrolytes and kidney function were normal. Your vitamin D was normal. Your thyroid is working as it should, which is great news. A well-functioning thyroid is essential for many aspects of your health including your energy levels, mood, and metabolism. Your total cholesterol is 258 mg/dL mg/dL; the desired level is to be below 200 mg/dL. Your HDL ???good?? cholesterol is 104 mg/dL mg/dL; the desired level is to be above 40 mg/dL. Your LDL ???bad?? cholesterol is 137 mg/dL mg/dL; the desired level is to be below 130 mg/dL, and ideally below 100 mg/dL. And finally, your triglycerides are 83 mg/dL mg/dL; the desired level is to be below 150 mg/dL, however often they won't be treated until they are at 500 mg/dL. Will check lpa now. documented in this encounter Plan of Treatment Upcoming Encounters Date Type Department Care Team (Late st Contact Info) Description 12/11/2025 8:00 AM EDT Office Visit [facility] [address] [facility] Gynecology [address] [place] [phone] Eri Chaney MD [address] [place] [address] 02/27/2026 8:30 AM EDT Office Visit [facility] [address] [facility] Department [address] [place] [address] [place] [address] Eduardo Parson MD [address] [place] [address] documented as of this encounter Results * Due to [place] state law, this organization might not be sharing negative HIV tests. * (ABNORMAL) Lipoprotein A (LPA) (02/21/2025 12:33 PM EDT) Lipoprotein 216(H) <75 nmol/L 02/26/2025 9:24 PM EDT [facility]) Comment: Risk Category Optimal < 75 nmol/L Moderate 75 - 125 nmol/L High > 125 nmol/L Cardiovascular event risk category cut points (optimal, moderate, high) are based on Kelsie Barnard [facility] 2017;[id number]. Blood Structure of peripheral vein / Unknown Venipuncture / Unknown 02/21/2025 12:33 PM EDT 02/21/2025 12:33 PM EDT Narrative [facility] - 02/26/2025 9:24 PM EDT [facility] Received Date:[id number] Eduardo Parson MD LAB BLOOD ORDERABLES Final Res ult [facility] [address] [place] [address] [address] Floor, [place] [address], [place] [phone] [facility] [employer] [address] [place] [address] , * Lipase (02/21/2025 12:33 PM EDT) Lipase 34 13 - 60 U/L 02/21/2025 2:58 PM EDT [facility] Blood Structure of peripheral vein / Unknown Venipuncture / Unknown 02/21/2025 12:33 PM EDT 02/21/2025 12:33 PM EDT Eduardo Parson MD LAB BLOOD ORDERABLES Final Res ult Performing Organization Address City/[facility]/ZIP Co de Phone Number [facility] [address] [place] [address], [place] [phone] * (ABNORMAL) Protein electrophoresis, serum (02/21/2025 12:33 PM EDT) Protein, Total 7.7 6.1 - 8.1 g/dL 02/22/2025 7:28 PM EDT [facility] [employer] [facility] Albumin 4.5 3.8 - 4.8 g/dL 02/22/2025 7:28 PM EDT [employer] [facility] Alpha 1 Globulin 0.4(H) 0.2 - 0.3 g/dL 02/22/2025 7:28 PM EDT [employer] [facility] Alpha 2 Globulin 0.8 0.5 - 0.9 g/dL 02/22/2025 7:28 PM EDT [employer] [facility] Beta 1 Globulin 0.4 0.4 - 0.6 g/dL 02/22/2025 7:28 PM EDT [employer] [facility] Beta 2 Globulin 0.3 0.2 - 0.5 g/dL 02/22/2025 7:28 PM EDT [employer] [facility] Gamma Globulin 1.3 0.8 - 1.7 g/dL 02/22/2025 7:28 PM EDT [employer] [facility] Interpretation See Comments 02/22/2025 7:28 PM EDT [employer] [facility] Comment: Alpha-1 globulin increase noted. Blood Structure of peripheral vein / Unknown Venipuncture / Unknown 02/21/2025 12:33 PM EDT 02/21/2025 12:33 PM EDT Narrative [facility] - 02/22/2025 7:28 PM EDT [facility] Received Date:[id number] us Eduardo Parson MD LAB BLOOD ORDERABLES Final Res ult [facility] [address] [facility] [address]rd Floor, [place] [address], [place] [phone] [employer] [facility] [address] [facility] 3rd Floor, [place] [address], [place] [phone] documented in this encounter Visit Diagnoses Diagnosis Annual physical exam- Primary Routine general medical examination at a health care facility Pre-diabetes Other abnormal glucose Diarrhea, unspecified type Elevated serum globulin level Pure hypercholesterolemia documented in this encounter Care Teams Slab Installer Relationship Specialty Start Date End Date Eduardo Parson MD [address] [place] [address] PCP - General Family Medicine 11/08/24 documented as of this encounter
--- OUTSIDE RECORDS SUMMARY | 2025-04-09 10:39 | XMS_ITS | Encounter Summary ---
Author Organization [facility] Address [address] [place] [address] Care Team Providers Care Critical Systems Technician Name Role Phone Eduardo Parson MD Primary Care Provider [phone] Encounter Details Date Type Department Care Team (Late st Contact Info) Description 03/30/2025 myChart Message [facility] [address] [facility] Department [address] [place] [address] [place] [phone] Eduardo Parson MD [address] [place] [address] MRI results Social History Tobacco Use Types Packs/Day Years Used Date Smoking Tobacco: Never Passive Smoke Exposure: Never Smokeless Tobacco: Never Alcohol Use Standard Drinks/Week Comments Yes 4 (1 standard drink = 0.6 oz pur e alcohol) [facility] Utilities Answer Date Recorded In the [...] Description 12/11/2025 8:00 AM EDT Office Visit [facility] 118 [facility] Gynecology [address] [place] [address] Eri Chaney MD [address] [place] [address] 02/27/2026 8:30 AM EDT Office Visit [facility] [address] [facility] Department 10 [facility] [place] [address] Eduardo Parson MD [address] [place] [address] documented as of this encounter Visit Diagnoses Not on filedocumented in this encounter Care Teams Critical Systems Technician Relationship Specialty Start Date End Date Eduardo Parson MD [address] [place] [address] PCP - General Family Medicine 11/08/24 documented as of this encounter
--- OUTSIDE RECORDS SUMMARY | 2025-04-09 10:39 | XMS_ITS | Clinical Summary ---
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 LORazepam (ATIVAN) 0.5 mg tabletIndication s:Anxiety about health Take 1 tablet (0.5 mg total) by mouth 2 times a day as needed for anxiety. 30 tablet 02/21/2025 Active Active Problems Problem Noted Date Diagnosed Date ETD (Eustachian tube dysfunction), bilateral 04/2024 Assessment & Plan (11/08/2024 9:13 AM EDT): - per prior PCP 06/2024: exam is consistent with bilateral postviral eustachian tube dysfunction - recommend ENT or audiology consult Assessment & Plan (06/20/2024 9:35 AM EST): With a history that she presents for this office visit today as well as her exam is consistent with bilateral postviral eustachian tube dysfunction. We reviewed the natural history of this process, and appropriate management including nasal lavage, as needed ibuprofen or acetaminophen and most importantly for the next 3 days pseudoephedrine. We did discuss other options such as fluticasone or oral prednisone but I did not feel that either of those 2 options were as effective for her compared to the Sudafed. Follow-up as as needed Pre-diabetes 10/29/2023 Assessment & Plan (11/08/2024 9:13 AM EDT): - last A1c: 10/20/2023: Hemoglobin A1c 5.8 % not available in our records - last LDL: 10/20/2023: LDL Cholesterol 137 mg/dL not available in our records - PCV20, flu vaccines: due for PCV20 - patient is a non-smoker - continue to monitor A1c q3-6 months; lipid panel q6-12 months; flu vaccine annually Assessment & Plan (10/29/2023 9:06 AM EDT): Mild glucose elevation primarily with her A1c now at 5.8%. Given the fact that she has excellent dietary habits and maintains an excellent weight, there is little that we have to do other than monitor but watching starches was recommended. Consider follow-up in 6 months Dysplastic nevus 10/29/2023 Assessment & Plan (11/05/2023 8:29 AM EDT): Shave excisional biopsy successfully performed. Await pathology and address accordingly Assessment & Plan (10/29/2023 9:06 AM EDT): 2 x 3 mm black irregular macule with slight raised central area even darker over the right clavicle. This lesion is distinctly different than anything else on her body. Will return for shave biopsy Seasonal allergic rhinitis 05/24/2023 Assessment & Plan (11/08/2024 9:13 AM EDT): - noticing her seasonal allergies have been worsening over the last few years Assessment & Plan (10/29/2023 9:06 AM EDT): Although symptoms not considerable and her exam reassuring card there is still may be a component of allergic rhinitis with her respiratory issues. Please see discussion below Assessment & Plan (05/24/2023 10:48 AM EST): At this point time with the history that she provides indicating a slowly progressive process interfering with her exertional capacity, however reassuring exam, this may indeed relate to either a viral persistent rhinitis leading to cough and dyspnea or seasonal allergies as well. We will obtain a chest x-ray to be sure that there is not another etiology ongoing, with a peak flow of 370 I am confident that that falls within an acceptable range as well. At this point time options to treat could be a steroid taper, a LABA/ICS inhaler, or more simply use of montelukast to help with both the respiratory and the rhinitis components of seasonal winter allergies. I think that is the more reasonable approach to take at this point in time however if there is any abnormality seen on chest x-ray or symptoms persist then I would lean toward a prednisone taper next to eliminate the symptoms. Follow-up as needed Dyspnea on exertion 05/24/2023 Assessment & Plan (05/24/2023 10:48 AM EST): At this point time with the history that she provides indicating a slowly progressive process interfering with her exertional capacity, however reassuring exam, this may indeed relate to either a viral persistent rhinitis leading to cough and dyspnea or seasonal allergies as well. We will obtain a chest x-ray to be sure that there is not another etiology ongoing, with a peak flow of 370 I am confident that that falls within an acceptable range as well. At this point time options to treat could be a steroid taper, a LABA/ICS inhaler, or more simply use of montelukast to help with both the respiratory and the rhinitis components of seasonal winter allergies. I think that is the more reasonable approach to take at this point in time however if there is any abnormality seen on chest x-ray or symptoms persist then I would lean toward a prednisone taper next to eliminate the symptoms. Follow-up as needed Cardiac murmur 05/20/2023 Cervical spondylosis 05/20/2023 Hallux valgus of left foot 05/20/2023 Metatarsalgia 05/20/2023 Vitamin D deficiency 05/20/2023 Assessment & Plan (11/08/2024 9:13 AM EDT): - pertinent medication(s): none Vitamin D 25-OH Date Value Ref Range Status 10/20/2023 35.30 30.00 - 80.00 ng/mL Final Assessment & Plan (10/29/2023 9:06 AM EDT): Vitamin D level at 35.30 is excellent. 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 Monitor carefully with skin exam again every 6 months now may be most appropriate. Please see dysplastic nevus discussion Psoriasis 03/22/1995 Overview (11/09/2023): 03/22/1995 Miguel BLEDSOE M.D. Resolved Problems Problem Noted Date Diagnosed Date Resolved Date Allergic response 05/20/2023 11/08/2024 Aphthous ulcer of mouth 05/20/202310/12 At average risk for colon cancer 05/20/2023 11/08/2024 Breast asymmetry 05/20/2023 11/08/2024 Encounter for repeat Papanic olaou smear of cervix due to previous unsatisfactory results 05/20/2023 11/08/2024 S/P foot surgery, left 05/20/202311/08 Tinea versicolor 10/24/2018 11/09/2023 Endometriosis 11/03/2006 11/09/2023 Overview (05/20/2023): 12/01/2005 KELLEE BROWN MD , Major depressive disorder, s haven episode, moderate 04/02/2006 11/09/2023 Overview (11/09/2023): 04/02/2006 [facility] Encounters Date Type Department Care Team Description 03/30/2025 myChart Message [facility] [address] [facility] [place] [address] Eduardo Parson MD MRI results 03/15/2025 7:06 AM EDT - 03/15/2025 11:59 PM EDT Hospital Encounter [facility] [address] [place] [address] Eri Cahney MD Breast cancer screening by mammogram Discharge Disposition: Home or Self Care () 03/15/2025 7:06 AM EDT - 03/15/2025 11:59 PM EDT Hospital Encounter [facility] [address] [place] [address] Eri Chaney MD Post-menopausal Discharge Disposition: Home or Self Care () 03/11/2025 Results Follow-Up [address] Department [address] [place] [phone] Eduardo Parson MD Results 02/22/[address] Department [address] [place] [phone] Eduardo Parson MD Copies 02/21/2025 12:35 PM EDT Lab [facility] Site Department [address] [place] [phone] Elevated serum globulin level; Pre-diabetes; Diarrhea, unspecified type; Pure hypercholesterolemia 02/21/2025 11:00 AM EDT Office Visit [address] Department [address] [place] [phone] Eduardo Parson MD Annual physical exam (Primary Dx); Pre-diabetes; Vitamin D deficiency; Anxiety about health; Diarrhea, unspecified type 02/16/2025 6:55 AM EDT Lab [facility] Site Department [address] [place] [phone] Healthcare maintenance; Hyperglycemia; Vitamin D deficiency 02/16/2025 Results Follow-Up [address] Department [address] [place] [phone] Katy Robbins NP from Last 3 Months Immunizations Immunization Administration Dates Next Due Covid-19, Pfizer, mRNA, Sanders valent, PF 30 mcg/0.3 mL dose (for ages 12 and older) 07/01/2021,11/26/2020,11/05/2020,2020 Influenza, Injectable, Quadr ivalent, Preservative Free 06/11/2020,04/14/2019,04/12/2018 Influenza, Quadrivalent, Rec ombinant, Injectable, PF 04/27/2022 Influenza, Trivalent, MDV, Injectable 06/11/2020 ,05/18/2006 Pneumococcal Conjugate Vacci ne, 13 Valent 06/28/2015 Tetanus Toxoid, Reduced Diph theria Toxoid, and Acellular Pertussis Vaccine, Adsorbed 09/19/2021,07/07/2011 Zoster Vaccine Recombinant 08/13/2020,06/11/2020 Family History Medical History Relation Name Comments Aneurysm Brother Coronary aneurysm Brother Cancer Mother Breast cancer Sister Pancreatic cancer Sister Cervical cancer Neg Hx Colon cancer Neg Hx Osteoporosis Neg Hx Ovarian cancer Neg Hx Uterine cancer Neg Hx Relation Name Status Comments Brother Mother Sister Social History Tobacco Use Types Packs/Day Years Used Date Smoking Tobacco: Never Passive Smoke Exposure: Never Smokeless Tobacco: Never Tobacco Cessation:Counseling Given: Not Answered Alcohol Use Standard Drinks/Week Comments Yes 4 (1 standard drink = 0.6 oz pur e alcohol) [facility] Utilities Answer Date Recorded In the past 12 months has th e [employer], gas, oil, or water Ischemia Care threatened to shut off services in your [...] Orientation Straight 10/22/2023 8: 31 AM EDT Last Filed Vital Signs Vital Sign Reading Time Taken Comments Blood Pressure 112/70 02/21/2025 10:46 AM EDT Pulse 78 02/21/2025 10:46 AM EDT Temperature 35 C (95 F) 02/21/2025 10:46 AM EDT Respiratory Rate 18 11/08/2024 8:32 AM EDT Oxygen Saturation 94% 02/21/2025 10:46 AM EDT Inhaled Oxygen Concentration - - Weight 47.2 kg (104 lb) 02/21/2025 10:46 AM EDT Height 149.9 cm (4' 11 ) 02/21/2025 10:46 AM EDT Body Mass Index 21.01 02/21/2025 10:46 AM EDT Plan of Treatment Upcoming Encounters Date Type Department Care Team (Late st Contact Info) Description 12/11/2025 8:00 AM EDT Office Visit [facility] [address] [facility] [address] [place] [phone] Eri Chaney MD [address] [place] [phone] 02/27/2026 8:30 AM EDT Office Visit [facility] [address] Department [address] [facility] [place] [phone] Eduardo Parson MD [address] [place] [phone] Health Maintenance Due Date Last Done Comments Cologuard 1961 FOBT / Fit Test 1961 HIV Screening 1960 Sigmoidoscopy 1961 Pneumococcal Vaccine: 50+ Years (2 of 2 - PCV20 or PCV21) 06/28/2016 06/28/2015 COVID-19 Vaccine ( season) 2025 07/01/2021, 11/26/2020, 11/05/2020, Additional history exists Influenza Vaccine (#1) 2025 , 06/11/2020, 06/11/2020, Additional history exists Social Drivers of Health Annual Screening 11/08/2025 11/08/2024 Depression Screening and Follow-Up 02/14/2026 02/14/2025 Mammogram 03/15/2027 03/15/2025, 02/10, 03/02/2023, Additional history exists Pap Smear 11/22/2027 11/21/2024 Cervical Cancer Screening 11/21/2029 HPV and Pap Smear 11/21/2029 11/21/2024, 10/23/2021 DTaP,Tdap,and Td Vaccines (3 - Td or Tdap) 09/20/2031 09/19/2021, 07/07/2011 Colon Cancer Screening 10/17/2031 Colonoscopy 10/17/2031 10/16/2021, 10/15/2021 RSV Vaccine (60+ years old and patients) (1 - 1-dose 75+ series) 01/14/2036 Zoster Vaccines Completed 08/13/2020, 06/11/2020 Hepatitis C Screening Completed 10/20/2023 Alcohol/Substance Use Screening Completed 02/14/2025 Hepatitis B Vaccines Aged Out No long er eligible based on patient's age to complete this topic Procedures * Due to [place] state law, this organization might not be sharing negative HIV tests. Procedure Name Priority Date/Time Associated Diagnosis Comments DEXA AXIAL AND TBS Routine 03/15/2025 7: 40 AM EDT Post-menopausal MAHAD BILATERAL SCREENING DIGITAL MAMMOGRAM WITH VINOD Routine 03/15/2025 7:38 AM EDT Breast cancer screening by mammogram AMB EXTERNAL MRI ABDOMEN, OUTSIDE RESULT 02/22/2025 AMYLASE Routine 02/21/2025 12:33 PM EDT Pre-diabetes Diarrhea, unspecified type LIPOPROTEIN A (LPA) Routine 02/21/2025 12:33 PM EDT Pure hypercholesterolemia LIPASE Routine 02/21/2025 12:33 PM EDT Pre-diabetes Diarrhea, unspecified type PROTEIN ELECTROPHORESIS, SERUM Routine 02/21/2025 12:33 PM EDT Elevated serum globulin level VITAMIN D, 25-HYDROXY, TOTAL, IMMUNOASSAY Routine 02/16/2025 6:57 AM EDT Healthcare maintenance Vitamin D deficiency TSH REFLEX FREE T4 Routine 02/16/2025 6: 57 AM EDT Healthcare maintenance CBC AUTO DIFFERENTIAL Routine 02/16/2025 6:57 AM EDT Healthcare maintenance HEMOGLOBIN A1C Routine 02/16/2025 6:57 AM EDT Healthcare maintenance Hyperglycemia BASIC METABOLIC PANEL Routine 02/16/2025 6:57 AM EDT Healthcare maintenance Hyperglycemia HEPATIC FUNCTION PANEL Routine 02/16/2025 6:57 AM EDT Healthcare maintenance LIPID PANEL W/REFLEX TO DIRECT LDL Routine 02/16/2025 6:57 AM EDT Healthcare maintenance LAB - SCANNED 02/13/[address] ABDOMEN, OUTSIDE RESULT 01/24/2025 LAB - SCANNED 01/10/2025 THINPREP PAP WITH HPV SCREEN AND REFLEX HPV 16, 18/45 - PHIPPS ONLY Routine 11/21/2024 8:21 AM EDT Women's annual routine gynecological examination HEPATITIS C ANTIBODY W/REFLEX TO HCV RNA, QUANTITATIVE PCR Routine 10/20/2023 6:40 AM EDT Healthcare maintenance HM COLONOSCOPY 10/16/2021 10:51 AM EDT from Last 3 Months or Most Recently Relevant to Health Maintenance Results * Due to [place] state law, this organization might not be sharing negative HIV tests. * DXA Axial and TBS (03/15/2025 7:40 AM EDT) Anatomical Region Laterality Modality Bone Densitometr y 03/16/2025 8:42 AM EDT Impressions 03/16/2025 8:43 AM EDT This patient has osteopenia. Compared to the prior study, there has been decrease in the BMD/T value of the spine and hip. Diagnostic criteria and clinical considerations: Neither osteopenia (low bone mass) nor osteoporosis: Based on T-scores, TBS adjusted T-scores or 10 year FRAX risk) Osteopenia (low bone mass): Based on T-scores, TBS adjusted T-scores or 10 year FRAX risk Osteoporosis: Based on T-scores of or below -2.5, TBS adjusted T-scores of or below -2.5, or TBS adjusted T-scores between -1.1 and -2.4 and high 10 year FRAX probability of fracture (major osteoporotic >20% or hip >3% - additional assessment and pharmacological management to be considered A low trauma fracture (spine, hip, pelvis, proximal humerus, distal radius), especially after the age of 50 is consistent with a clinical diagnosis of osteoporosis, independent of BMD/ T-scores. Patients already diagnosed with osteoporosis and treated continue to bear the initial diagnosis, and fracture risk estimations are modified by many clinical factors, including prior treatment, or fall risk. If this radiology report contains a blank impression section, it is an incomplete radiology report. Please contact the interpreting radiologist or applicable radiology division as soon as possible to obtain the completed interpretation. Workstation ID: [id number] Narrative 03/16/2025 8:43 AM EDT EXAM: BONE MINERAL DENSITY INDICATION: 65 years years-old Female with history of Post-Menopausal State Z78.0 - I10 - Asymptomatic menopausal state. PROCEDURE: The bone mineral density (BMD) of the spine and proximal left femur was determined using an external X-ray source (Nitro PDF). SITE: [facility] COMPARISON: Prior BMD of 2013 FINDINGS: L1-L4: BMD 0.9 gm/cm2 T-Score -1.3 Z-score: 0.4 prior BMD(T) 1.04 (-0.1) Femoral neck: BMD 0.62 gm/cm2 T-Score -2 Z-score: -0.5 Total hip: BMD 0.73 gm/cm2 T-Score -1.7 Z-score: -0.6 prior BMD(T) 0.84 (0.8) The World Health Organization (WHO) defines osteoporosis (as studied in post-menopausal women) as a T value of (-)2.5 or less at any site. Osteopenia is defined by a T value between (-)1.1 and (-)2.4. 10-year Fracture Risk (FRAX) Major osteoporotic fracture 17% Hip fracture 1.4% In general, it is recommended that patients receive approximately 1000 mg of calcium daily, either from dairy products or supplements (including multiple vitamin). Patients should consider supplementing with vitamin D. Vitamin D recommendations should be discussed with Health Care Provider and measurement of vitamin D levels should be considered. Careful weight-bearing exercise is also useful in maintaining bone mass and to help protect against falls. Based on our precision data, a change of 1.5% in the spine or total hip is significant in the individual patient. Trabecular bone score (TBS) L1-L4: TBS 1.35 Z-score: 0.6 (normal microarchitecture TBS: >1.31; degraded: <1.24) Resulting Agency Comment [id number] Procedure Note Jenni Barroso MD - 03/16/2025 EXAM: BONE MINERAL DENSITY INDICATION: 65 years years-old Female with history of Post-MenopausalState Z78.0 - I10 - Asymptomatic menopausal state. PROCEDURE: The bone mineral density (BMD) of the spine and proximal leftfemur was determined using an external X-ray source (Hologic). SITE: [facility] COMPARISON: Prior BMD of 2012 FINDINGS: L1-L4: BMD 0.9 gm/cm2 T-Score -1.3 Z-score: 0.4 prior BMD(T) 1.04(-0.1) Femoral neck: BMD 0.62 gm/cm2 T-Score -2 Z-score: -0.5 Total hip: BMD 0.73 gm/cm2 T-Score -1.7 Z-score: -0.6 prior BMD(T)0.84 (0.8) The World Health Organization (WHO) defines osteoporosis (as studied inpost-menopausal women) as a T value of (-)2.5 or less at any site.Osteopenia is defined by a T value between (-)1.1 and (-)2.4. 10-year Fracture Risk (FRAX) Major osteoporotic fracture 17% Hip fracture 1.4% In general, it is recommended that patients receive approximately 1000 mgof calcium daily, either from dairy products or supplements (includingmultiple vitamin). Patients should consider supplementing with vitamin D.Vitamin D recommendations should be discussed with Health Care Providerand measurement of vitamin D levels should be considered. Carefulweight-bearing exercise is also useful in maintaining bone mass and tohelp protect against falls. Based on our precision data, a change of 1.5% in the spine or total hip issignificant in the individual patient. Trabecular bone score (TBS) L1-L4: TBS 1.35 Z-score: 0.6 (normal microarchitecture TBS: >1.31;degraded: <1.24) IMPRESSION: This patient has osteopenia. Compared to the prior study, there has beendecrease in the BMD/T value of the spine and hip. Diagnostic criteria and clinical considerations: Neither osteopenia (low bone mass) nor osteoporosis: Based on T-scores,TBS adjusted T-scores or 10 year FRAX risk) Osteopenia (low bone mass): Based on T-scores, TBS adjusted T-scores or10 year FRAX risk Osteoporosis: Based on T-scores of or below -2.5, TBS adjusted T-scores ofor below -2.5, or TBS adjusted T-scores between -1.1 and -2.4 and high 10year FRAX probability of fracture (major osteoporotic >20% or hip >3% -additional assessment and pharmacological management to be considered A low trauma fracture (spine, hip, pelvis, proximal humerus, distalradius), especially after the age of 50 is consistent with a clinicaldiagnosis of osteoporosis, independent of BMD/ T-scores. Patients alreadydiagnosed with osteoporosis and treated continue to bear the initialdiagnosis, and fracture risk estimations are modified by many clinicalfactors, including prior treatment, or fall risk. If this radiology report contains a blank impression section, it is anincomplete radiology report. Please contact the interpreting radiologistor applicable radiology division as soon as possible to obtain thecompleted interpretation. Workstation ID: [id number] Eri Chaney MD IMG DXA PROCEDURES Final Result * MAHAD Bilateral Screening Digital Mammogram With Vinod (03/15/2025 7:38 AM EDT) Anatomical Region Laterality Modality Breast Bilateral Mammography Narrative 03/27/2025 9:12 AM EDT Bhumika Sandoval Exam Date: 03/15/[address] [address] EXAMINATION MAHAD Bilateral Screening Digital Mammogram With Vinod. INDICATION Bhumika Sandoval is a 65 y.o. female and is seen for: screening. CC and MLO views were obtained. FDA approved KangaDo AI (artificial intelligence) software and R2 CAD were used as a concurrent reading aid in the interpretation of this study. COMPARISON Relevant prior exams in PACS. Bilateral Breast Findings: There are scattered areas of fibroglandular density. No significant masses, calcifications or other abnormalities are seen. IMPRESSION No evidence of malignancy. BI-RADS ATLAS category (overall): 1 - Negative MANAGEMENT Routine Screening Mammogram in 1 Year is recommended for bilateral. The patient was entered into a reminder system with a target date for their next mammogram. The patient s lifetime risk for breast cancer was calculated as: Tyrer-Cuzick: 8.1%. For high-risk women (life-time risk greater than 20%), regardless of breast density, supplemental screening with annual breast MRI is recommended in addition to annual mammography, ideally staggered at 6-month intervals. Women with dense breast tissue and lifetime risk less than 20% may also benefit from supplemental screening with breast MRI (Epic order M RI BREAST BILATERAL SCREENING W WO CONTRAST ) or automated breast ultrasound (Epic order A BUS ) depending on risk factors. https://acsearch.acr.org/docs/7829417/Narrative/ TC score is not calculated for women with personal history of breast cancer or if age >80 years. If this radiology report contains a blank impression section, it is an incomplete radiology report. Please contact the interpreting radiologist or applicable radiology division as soon as possible to obtain the completed interpretation. Carla Rogers MD Resulting Agency Comment [id number] us Eri Chaney MD IMG BI PROCEDURES Final R esult * MRI Abdomen, Outside Result (02/22/2025) Anatomical Region Laterality Modality Other 02/22/2025 us Onbase Scan Wanda AMB EXTERNAL RESULT PROCEDURE S Final Result * (ABNORMAL) Lipoprotein A (LPA) (02/21/2025 12:33 PM EDT) Lipoprotein 216(H) <75 nmol/L 02/26/2025 9:24 PM EDT [facility] MARS) Comment: Risk Category Optimal < 75 nmol/L Moderate 75 - 125 nmol/L High > 125 nmol/L Cardiovascular event risk category cut points (optimal, moderate, high) are based on Kelsie Barnard [facility] 2017;[id number]. Blood Structure of peripheral vein / Unknown Venipuncture / Unknown 02/21/2025 12:33 PM EDT 02/21/2025 12:33 PM EDT Narrative [facility] NAVARRO - 02/26/2025 9:24 PM EDT [facility] Received Date:[id number] us Eduardo Parson MD LAB BLOOD ORDERABLES Final Res ult [facility] NAVARRO [address] [place] [address] [address] Floor, [place] [address], [place] [phone] ZULEYMA POP (CARL) [address] [place] [address], [place] * (ABNORMAL) Protein electrophoresis, serum (02/21/2025 12:33 PM EDT) Protein, Total 7.7 6.1 - 8.1 g/dL 02/22/2025 7:28 PM EDT [employer] [facility] Albumin 4.5 3.8 - 4.8 g/dL 02/22/2025 7:28 PM EDT [facility] Alpha 1 Globulin 0.4(H) 0.2 - 0.3 g/dL 02/22/2025 7:28 PM EDT [facility] Alpha 2 Globulin 0.8 0.5 - 0.9 g/dL 02/22/2025 7:28 PM EDT [employer] [facility] Beta 1 Globulin 0.4 0.4 - 0.6 g/dL 02/22/2025 7:28 PM EDT [employer] [facility] Beta 2 Globulin 0.3 0.2 - 0.5 g/dL 02/22/2025 7:28 PM EDT [employer] [facility] Gamma Globulin 1.3 0.8 - 1.7 g/dL 02/22/2025 7:28 PM EDT [employer] [facility] Interpretation See Comments 02/22/2025 7:28 PM EDT [employer] [facility] Comment: Alpha-1 globulin increase noted. Blood Structure of peripheral vein / Unknown Venipuncture / Unknown 02/21/2025 12:33 PM EDT 02/21/2025 12:33 PM EDT Narrative [facility] - 02/22/2025 7:28 PM EDT [facility] Received Date:[id number] us Eduardo Parson MD LAB BLOOD ORDERABLES Final Res ult Performing Organization Address City/[facility]/ZIP Co de Phone Number [facility] [address] [facility] 3rd Floor, [place] [address], [place] [phone] [employer] [facility] [address] [facility] [address] [facility], [place] [address], [place] [phone] * Lipase (02/21/2025 12:33 PM EDT) Lipase 34 13 - 60 U/L 02/21/2025 2:58 PM EDT [facility] Blood Structure of peripheral vein / Unknown Venipuncture / Unknown 02/21/2025 12:33 PM EDT 02/21/2025 12:33 PM EDT us Eduardo Parson MD LAB BLOOD ORDERABLES Final Res ult [facility] [address] [facility] [facility] [place] [address], [place] [phone] * Amylase (02/21/2025 12:33 PM EDT) Amylase 84 28 - 127 U/L 02/21/2025 2:58 PM EDT [facility] Blood Structure of peripheral vein / Unknown Venipuncture / Unknown 02/21/2025 12:33 PM EDT 02/21/2025 12:33 PM EDT Eduardo Parson MD LAB BLOOD ORDERABLES Final Res ult Performing Organization Address [facility] Co de Phone Number [facility] [address] [address], [place] [phone] * TSH Reflex Free T4 (02/16/2025 6:57 AM EDT) TSH 2.610 0.270 - 4.200 uIU/mL 02/16/2025 10:28 AM EDT [facility] Blood Structure of peripheral vein / Unknown Venipuncture / Unknown 02/16/2025 6:57 AM EDT 02/16/2025 6:57 AM EDT Angie Sapp NP LAB BLOOD ORDERABLES Final Re sult Performing Organization Address [facility] de Phone Number [facility] [address] [address], [place] [phone] * Lipid Panel w/Reflex to Direct LDL (02/16/2025 6:57 AM EDT) Cholesterol 258 mg/dL 02/16/2025 10:28 AM EDT [facility] Comment: DESIRABLE: <200 mg/dL BORDERLINE HIGH: 200-239 mg/dL HIGH: >239 mg/dL Triglycerides 83 mg/dL 02/16/2025 10:28 AM EDT [facility] Comment: NORMAL: <150 mg/dL BORDERLINE HIGH: 150-199 mg/dL HIGH: 200-499 mg/dL VERY HIGH >499 mg/dL Cholesterol, HDL 104 mg/dL 02/17/20 10:28 AM EDT [facility] Comment: DESIRABLE: >60 mg/dL BORDERLINE: 40-59 mg/dL UNDESIRABLE: <40 mg/dL LDL Cholesterol 137 mg/dL 10:28 AM EDT [facility] Comment: OPTIMAL: <100 mg/dL NEAR OPTIMAL: <130 mg/dL BORDERLINE HIGH: 130-159 mg/dL HIGH: 160-189 mg/dL VERY HIGH: >189 mg/dL VLDL 16.6 mg/dL 02/16/2025 10:28 AM EDT [facility] Cholesterol/HDL Ratio 2.5 02/16/2025 10:28 AM EDT [facility] Blood Structure of peripheral vein / Unknown Venipuncture / Unknown 02/16/2025 6:57 AM EDT 02/16/2025 6:57 AM EDT Angie Sapp CYLINDER DIE MACHINE HELPER LAB BLOOD ORDERABLES Final Re sult [facility] [address] [place] [address], * (ABNORMAL) CBC Auto Differential (02/16/2025 6:57 AM EDT) WBC 6.4 4.8 - 10.8 10*3/uL 02/16/2025 10:47 AM EDT [facility] RBC 4.69 4.20 - 5.40 10*6/uL 02/16/2025 10:47 AM EDT [facility] Hemoglobin 13.9 11.7 - 15.5 g/dL 02/16/2025 10:47 AM EDT [facility] Hematocrit 42.1 35.7 - 45.8 % 02/16/2025 10:47 AM EDT [facility] MCV 89.8 81.0 - 99.0 fL 02/16/2025 10:47 AM EDT [facility] MCH 29.6 26.0 - 34.0 pg 02/16/2025 10:47 AM EDT [facility] MCHC 33.0 31.0 - 36.0 g/dL 02/16/2025 10:47 AM EDT [facility] RDW 14.6 12.0 - 15.0 % 02/16/2025 10:47 AM EDT [facility] RDW Standard Deviation 48.3(H) 36.4 - 46.3 fL 02/16/2025 10:47 AM EDT [facility] Platelets 271 140 - 440 10*3/uL 02/16/2025 10:47 AM EDT [facility] MPV 13.0(H) 9.4 - 12.3 fL 02/16/2025 10:47 AM EDT [facility] Neutrophil % 65.3 50.0 - 75.0 % 02/16/2025 10:47 AM EDT [facility] Immature Grans % 0.2 0.0 - 0.9 % 02/16/2025 10:47 AM EDT [facility] Lymphocyte % 22.2 20.0 - 44.0 % 02/16/2025 10:47 AM EDT [facility] Monocyte % 9.7 0.0 - 14.0 % 02/16/2025 10:47 AM EDT [facility] Eosinophil % 2.0 0.0 - 5.0 % 02/16/2025 10:47 AM EDT [facility] Basophil % 0.6 0.0 - 2.0 % 02/16/2025 10:47 AM EDT [facility] Neutrophil # 4.18 1.80 - 7.70 10*3/uL 02/16/2025 10:47 AM EDT [facility] Immature Grans # <0.03 0.00 - 0.03 10*3/uL 02/16/2025 10:47 AM EDT [facility] Lymphocyte # 1.40 1.00 - 4.75 10*3/uL 02/16/2025 10:47 AM EDT [facility] Monocyte # 0.60 0.00 - 0.60 10*3/uL 02/16/2025 10:47 AM EDT [facility] Eosinophil # 0.10 0.00 - 0.80 10*3/uL 02/16/2025 10:47 AM EDT [facility] Basophil # <0.03 0.00 - 0.20 10*3/uL 02/16/2025 10:47 AM EDT [facility] nRBC % 0.0 0 - 0 /100 WBCs 02/16/2025 10:47 AM EDT [facility] nRBC # <0.01 0.00 - 0.13 10*3/uL 02/16/2025 10:47 AM EDT [facility] Blood Structure of peripheral vein / Unknown Venipuncture / Unknown 02/16/2025 6:57 AM EDT 02/16/2025 6:57 AM EDT Angie Sapp NP LAB BLOOD ORDERABLES Final Re sult Performing Organization Address [facility]/ZIP Co de Phone Number [facility] [address] [address], [place] [phone] * Vitamin D, 25-Hydroxy, Total, Immunoassay (02/16/2025 6:57 AM EDT) Vitamin D 25-OH 38.40 30.00 - 80.00 ng/mL 02/16/2025 3:18 PM EDT [facility] Blood Structure of peripheral vein / Unknown Venipuncture / Unknown 02/16/2025 6:57 AM EDT 02/16/2025 6:57 AM EDT Angie Sapp NP LAB BLOOD ORDERABLES Final Re sult Performing Organization Address City/[facility]/ZIP Co de Phone Number [facility] [address] [address], [place] [phone] * (ABNORMAL) Hemoglobin A1c (02/16/2025 6:57 AM EDT) Hemoglobin A1c 6.0(H) 4.0 - 5.7 % 02/16/2025 10:33 AM EDT [facility] Estimated Average Glucose 126 mg/dL 02/16/2025 10:33 AM EDT [facility] Blood Structure of peripheral vein / Unknown Venipuncture / Unknown 02/16/2025 6:57 AM EDT 02/16/2025 6:57 AM EDT us Angie Sapp CYLINDER DIE MACHINE HELPER LAB BLOOD ORDERABLES Final Re sult [facility] [address] [place] [address], * (ABNORMAL) Hepatic Function Panel (02/16/2025 6:57 AM EDT) Total Protein 8.4 6.6 - 8.7 g/dL 02/16/2025 10:28 AM EDT [facility] Albumin 4.6 3.5 - 5.0 g/dL 02/16/2025 10:28 AM EDT [facility] Globulin, Total 3.8 2.1 - 4.2 g/dL 02/16/2025 10:28 AM EDT [facility] Bilirubin, Total 0.4 0.2 - 1.2 mg/dL 02/16/2025 10:28 AM EDT [facility] Bilirubin, Direct 0.1 <=0.3 mg/dL 02/16/2025 10:28 AM EDT [facility] Alkaline Phosphatase 78 40 - 129 U/L 02/16/2025 10:28 AM EDT [facility] AST 27 0 - 33 U/L 02/16/2025 10:28 AM EDT [facility] ALT 19 <=33 U/L 02/16/2025 10:28 AM EDT [facility] Bilirubin, Indirect 0.30 <=0.70 mg/dL 02/16/2025 10:28 AM EDT [facility] A/G Ratio 1.2(L) 1.5 - 3.0 02/16/2025 10:28 AM EDT [facility] Blood Structure of peripheral vein / Unknown Venipuncture / Unknown 02/16/2025 6:57 AM EDT 02/16/2025 6:57 AM EDT Angie Sapp CYLINDER DIE MACHINE HELPER LAB BLOOD ORDERABLES Final Re sult [facility] [address] [place] [address], * (ABNORMAL) Basic Metabolic Panel (02/16/2025 6:57 AM EDT) NA 138 136 - 145 mmol/L 02/16/2025 10:28 AM EDT [facility] K 4.6 3.5 - 5.1 mmol/L 02/16/2025 10:28 AM EDT [facility] Cl 100 98 - 109 mmol/L 02/16/2025 10:28 AM EDT [facility] CO2 24 22 - 32 mmol/L 02/16/2025 10:28 AM EDT [facility] BUN 12 8 - 23 mg/dL 02/16/2025 10:28 AM EDT [facility] Creatinine 0.57 0.50 - 1.12 mg/dL 02/16/2025 10:28 AM EDT [facility] Glucose 100(H) 60 - 99 mg/dL 02/16/2025 10:28 AM EDT [facility] Calcium 10.2 8.4 - 10.4 mg/dL 02/16/2025 10:28 AM EDT [facility] Anion Gap 19 >=0 02/16/2025 10:28 AM EDT [facility] eGFR >90 >=60 mL/min/1. 73m2 02/16/2025 10:28 AM EDT [facility] Comment:The estimated glomer ular filtration rate (eGFR) is calculated using a new formula developed by the NKF-ASN task force to eliminate race-based correction factors. The new formula uses serum/plasma creatinine, age, and gender to determine eGFR. A value below 60mls/min might indicate kidney disease and will be flagged. For additional information, see Sarika et al, Am J Kidney Dis. 2021;79(2):268- 288, A Unifying Approach for GFR estimation: Recommendations of the NKF-ASN Task Force on Reassessing the Inclusion of Race in Diagnosing Kidney Disease . Blood Structure of peripheral vein / Unknown Venipuncture / Unknown 02/16/2025 6:57 AM EDT 02/16/2025 6:57 AM EDT us Angie Sapp NP LAB BLOOD ORDERABLES Final Re sult [facility] [address] [place] [address] [address] [place] [address], [place] [phone] * LAB - SCANNED (02/13/2025) Only the most recent of2 resultswithin the time period is included. us Onbase Scan [facility] LAB HISTORICAL RESULTS Final Result * CT Abdomen, Outside Result (01/24/2025) Anatomical Region Laterality Modality Other 01/24/2025 us Onbase Scan [facility] EXTERNAL RESULT PROCEDURE S Final Result * Thinprep Pap with HPV Screen and Reflex HPV 16, 18/45 - [place] only (11/21/2024 8:21 AM EDT) Pap Result Normal 11/27/2024 12:00 AM EDT [facility] Comment: PAP TEST INTERPRETATION Negative for intraepithelial lesion/malignancy. Specimen Adequacy: Satisfactory for evaluation. Endocervical/transformation zone absent (atrophic smear). Additional Findings: Atrophic smear. Doper: MELISSA Coombs (ASCP) Electronic Signature: 11/27/2024 12:45 Ancillary Testing Test Name Results HPV High NEGATIVE Risk HPV NEGATIVE Genotyping 16 HPV NEGATIVE Genotyping 18 Clinical History NO LMP GIVEN Source: Cervical/Endocervical Status: Routine/Screening Comments: Z01.419 Prior Cytology/Molecular History +------ /2024 +------+------+------+------ Thinprep PAP - NILM - +------+------+------+------ Thinprep PAP NILM - UNSAT w/housetrailer servicer +------+------+------+------ HPV High NEGATI NEGATI NEGATI Risk VE VE VE +------+------+------+------ HPV NEGATI - - Genotyping VE 16 +------+------+------+------ HPV NEGATI - - Genotyping VE 18 Technical services and automated prescreening by the ThinPrep Imaging System performed at [facility] ([facility], [address] [place] [address]; ; [id number]; CLIA #[id number]) All professional services performed by [facility] ([address] [place] [address]; ; CLIA #[id number]) Testing for HPV was performed at [facility] (CLIA# [id number], [id number]) using the Joe ENRIQUE [id number] system. The presence of HPV in the female genital tract is associated with a number of diseases, including cervical carcinoma. The HPV DNA high risk pool tests for HPV 31, 33, 35, 39, 45, 51, 52, 56, 58, 59, 66 and 68. Testing for HPV 16 and 18 genotypes has also been performed. A positive result indicates detection of nucleic acid sequences from one or more subtypes, whereas negative result indicates such sequences were not detected. Results should be correlated with other clinical and cytologic findings. Gynecological cytology is a screening procedure for cervical cancer. Both false positive and false negative results may occur. Reliability of the procedure can be significantly improved by combining the results of satisfactory cytology samples obtained on a regular and repetitive basis with all relevant clinical information. Brushing Cervix uteri structure / Unknown Non-Blood Collection / Unknown 11/21/2024 8:21 AM EDT 11/22/2024 9:28 AM EDT Eri Chaney MD LAB PATH/CYTO ([place] ) Final Result [facility] [address] [place] [address], * Hepatitis C Antibody w/Reflex to HCV RNA, Quantitative PCR (10/20/2023 6:40 AM EDT) Hepatitis C Antibody Interpretation Nonreactive Nonreactive 10/20/2023 3:38 PM EDT [facility] Blood Structure of peripheral vein / Unknown Venipuncture / Unknown 10/20/2023 6:40 AM EDT 10/20/2023 6:42 AM EDT Maria Fernanda Borden NP LAB BLOOD ORDERABLES Final R esult [facility] [address] [place] [address], * HM Colonoscopy (10/16/2021 10:51 AM EDT) us Onbase Scan [facility] Final Resu lt from Last 3 Months or Most Recently Relevant to Health Maintenance Insurance [employer] Advance Directives Documents on File Type Date Recorded 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
== END 2025-04-09 10:32 | disposition home or self-care (01) ==
LOC: HO.HGI 09:44
PROVIDERS: PCP Family Medicine; Visit Provider Internal Medicine
DX: K52.839 Microscopic colitis, unspecified (principal); K52.9 Noninfective gastroenteritis and colitis, unspecified; K80.50 Calculus of bile duct without cholangitis or cholecystitis without obstruction; K86.89 Other specified diseases of pancreas; Z80.0 Family history of malignant neoplasm of digestive organs; R19.4 Change in bowel habit
CPT/HCPCS: 99214

== ENCOUNTER → 2025-05-08 07:17 | Outpatient (BNV) | payer OTHER, SELFPAY | PROVIDERS: PCP Family Medicine; Visit Provider Radiology Diagnostic Radiology | DX: K80.50 Calculus of bile duct without cholangitis or cholecystitis without obstruction (principal) | CPT/HCPCS: 74181 ==

== ENCOUNTER 2025-05-08 07:28 | Outpatient (REF) | payer OTHER, SELFPAY ==
--- NOTE | ~2025-05-08 | MR_ITS ---
EXAMINATION: MRCP HISTORY: K80.50 - Calculus of bile duct without cholangitis or cholecystitis with... COMPARISON: There are no prior studies available for comparison. TECHNIQUE: Axial gradient echo in and out of phase T1, axial T2 and fat suppressed T2, and coronal haste T2 with fat saturation images were obtained through the abdomen. 3D MRCP Reconstructed images and thick slab imaging of the biliary tree were obtained. FINDINGS: The lung bases are clear. The liver is normal in shape size, shape and signal. There is a small 1 cm low signal T1 and high signal T2 lesion seen high in the dome of the liver near the hepatic venous confluence. This is similar to prior exams. This is not definitively characterized but probably represents a cyst or hemangioma. No other focal liver lesion. Normal gallbladder. No gallstones. No intra or extrahepatic biliary duct dilatation. Common bile duct measures 6.6 mm. No filling defect seen. 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 The main pancreatic duct is normal in caliber measuring 2 to 3 mm. No filling defect. The pancreas is normal in signal. No focal pancreatic lesion. Normal adrenal glands. Normal spleen. Small 5 mm bright T2 lesion in the anterior upper pole of the right kidney similar to prior exams. This is not definitively characterized. No hydronephrosis. Visualized bowel is normal. No adenopathy. Normal vascular structures. Mild degenerative changes of the spine. Bone marrow signal is normal. MR/MR MRCP IMPRESSION: No intra or extrahepatic biliary duct dilatation or filling defect. Normal gallbladder. Stable 1 cm bright T2 lesion high in the dome of the liver near the hepatovenous confluence. This is incompletely characterized but probably represents a cyst or hemangioma. 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 No main pancreatic duct dilatation or filling defect. Stable 5 mm bright T2 lesion in the anterior upper pole of the right kidney. This is incompletely characterized Electronically signed by: Abby Patterson MD 05/08/2025 08:54 AM EDT
--- OUTSIDE RECORDS SUMMARY | 2025-05-08 07:31 | XMS_ITS | Clinical Summary ---
Author Organization [facility] Address [address] [place] [address] Care Team Providers Care Observation Nurse Name Role Phone Pcp, No Primary Care Provider [phone] Social History Tobacco Use Types Packs/Day Years [...] Adults 18 yrs or above (or HM Modifier)([facility]) 1979 Hepatitis C Virus Infection in Adolescents and Adults: Screening (or Modifier) ([facility]) [address] [facility] Screening Reminder: Muriel story for all adults ([facility]) 1979 Tobacco Smoking Cessation: i n Adults excluding Women: Behavioral and Pharmacotherapy Interventions ([facility]) 1979 DTaP/Tdap/Td Vaccines ([facility]) (1 - Tdap) 01/14/1980 Cervical Cancer Screenin 1-65 yrs of age (or Modifier) 1982 Cervical Cancer Screening: P ap every 3 yrs pts age 21-65 1982 Cervical Cancer: Pap Screeni ng with Modifier timing ([facility]) 1982 Cervical Cancer: hrHPV alone or with cotesting Pap for Pts 30-65yrs screening every 5yrs ([facility]) 1982 Colorectal Cancer Screening 45 -75 Yrs (or HM Modifier ) 2006 Colorectal Cancer: FLEXIBLE SIGMOIDOSCOPY Screening every 5 yrs 2006 Colorectal Cancer: Fecal Imm unochemical Test (FIT) Annually [facility] 2006 Colorectal Cancer: High-sens itivity gFOBT Screening Annually [facility] 2006 Colorectal Cancer: Stool Col oguard Screening every 3 yrs 2006 Colorectal Cancer:CT Colonography Screening every 5 yr s 2006 Breast Cancer: Screening Muriel ually age 50-74 yrs (or HM Modifier)([facility]) 2011 Pneumococcal Vaccination Scr eening: Patients 50+ yrs of age ([facility]) (1 of 1 - PCV) 2011 Zoster/Shingles Vaccine Seri es Screening: Adults aged 18+ yrs (or HM Modifiers)([facility]) (1 of 2) 2011 Flu Vaccination: Yearly for ages 18mos through 64 years (or Modifier)([facility]) 02/09/2025 COVID-19 Vaccine Screening: Initial Series and Booster Status ([facility]) ( - 2023- season) 2025 RSV Vaccines (1 - 1-dose 75+ series) 01/14/2036 Medical Devices Not on file Insurance [facility] Care Teams Observation Nurse Relationship Specialty Start Date End Date Pcp, No PCP - General Family Medicine 10/22/20
--- OUTSIDE RECORDS SUMMARY | 2025-05-08 07:31 | XMS_ITS | Encounter Summary ---
Author Organization [facility] Address [address] [place] [address] Care Team Providers Care Single Stayer Operator Name Role Phone Sohail Andrea MD Primary Care Provider [phone] Sohail Andrea MD Primary Care Provider [phone] Encounter Details Date Type Department Care Team ([facility] st Contact Info) Description 05/01/2009 Orders Only [facility] Orthopedic Surgery [address] [place] [address] [address] [place] [address] Wilbert Mays MD [facility] [address] [place] [address] Social History Tobacco Use Types Packs/Day Years [...] classified documented in this encounter Care Teams Single Stayer Operator Relationship Specialty Start Date End Date Sohail Andrea MD [facility] [address] [place] [phone] PCP - General 07/27/09 Sohail Andrea MD [facility] [address] [place] [phone] PCP - General 10/03/05 07/26/09 documented as of this encounter
--- OUTSIDE RECORDS SUMMARY | 2025-05-08 07:31 | XMS_ITS | Encounter Summary ---
Author Organization [facility] Address [address] [place] [address] Care Team Providers Care Public Relations Coordinator Name Role Phone Sohail Andrea MD Primary Care Provider [phone] Sohail Andrea MD Primary Care Provider [phone] Reason for Referral * OUTPT P&D-MED SOLUTIONS (Routine) - Closed Specialty Diagnoses / Procedures Referred By Bakari t Referred To Contact Magnetic Resonance Imaging Diagnoses Shoulder impingement syndrome Procedures REQUEST FOR MRI SHOULDER W AND W/O CONTRAST - RIGHT FC [facility] Orthopedic Surgery [address] [facility] [address] [place] [address] Phone: tel: fax: Referral ID Status Reason Start Date Expiration Date V isits Requested Visits Authorized [id number] Closed Specialty Services Required 04/08/2009 1 1 Encounter Details Date Type Department Care Team (Late st Contact Info) Description 04/08/2009 Orders Only [facility] Orthopedic Surgery [address] [facility] [address] [place] [phone] Esmer Whitmore LPN [address] [facility] [address] [place] [address] Social History Tobacco Use Types Packs/Day Years [...] classified documented in this encounter Care Teams Public Relations Coordinator Relationship Specialty Start Date End Date Sohail Andrea MD [facility] [address] [place] [phone] PCP - General 07/27/09 Sohail Andrea MD [facility] [address] [place] [phone] PCP - General 10/03/05 07/26/09 documented as of this encounter
--- OUTSIDE RECORDS SUMMARY | 2025-05-08 07:31 | XMS_ITS | Clinical Summary ---
Author Organization [facility] Address [address] [address] Phone Care Team Providers Care Trim Mounter Name Role Phone Sohail Andrea MD Primary Care Provider Allergies No known active allergies Medications dexamethasone [...] 01/14/1980 Cervical Cancer Screening 1982 Colposcopy 1982 LEEP 1982 PAP SMEAR 1982 Pap + HPV 1982 MAMMOGRAM 2001 Colonoscopy FOBT- Positive 2006 Colonoscopy 2006 Colorectal Cancer Screening 2006 FOBT 2006 Sigmoidoscopy 2006 Pneumonia Vaccine 50+ (1 of 1 - PCV) 2011 Zoster Vaccine (1 of 2) 2011 COVID-19 Vaccine (1 - 2024-2 6 season) 2025 INFLUENZA VACCINE (#1) 2025 RSV [...] age to complete this topic Care Teams Trim Mounter Relationship Specialty Start Date End Date Sohail Andrea MD [address] [place], [place] PCP - General 01/24/18
--- OUTSIDE RECORDS SUMMARY | 2025-05-08 07:31 | XMS_ITS | Encounter Summary ---
Author Organization [facility] Address [address] [place] [address] Care Team Providers Care Admissions Coordinator Name Role Phone Sohail Andrea MD Primary Care Provider [phone] Sohail Andrea MD Primary Care Provider [phone] Reason for Referral * Specialty Diagnoses / Procedures Referred By Contac t Referred To Contact Diagnoses CONTUSION OF RIBS Sohail Andrea MD Phone: tel: fax: Referral ID Status Reason Start Date Expiration Date Visits Re quested Visits Authorized Encounter Details Date Type Department Care Team (Late st Contact Info) Description 04/21/2007 Orders Only [facility] [address] [place] [phone] Sohail Andrea MD [facility] [address] [place] [address] Social History Tobacco Use Types Packs/Day Years [...] wall documented in this encounter Care Teams Admissions Coordinator Relationship Specialty Start Date End Date Sohail Andrea MD [facility] [address] [place] [address] PCP - General 07/27/09 Sohail Andrea MD [facility] [address] [place] [phone] PCP - General 10/03/05 07/26/09 documented as of this encounter
--- OUTSIDE RECORDS SUMMARY | 2025-05-08 07:31 | XMS_ITS | Clinical Summary ---
Author Organization [facility] Address [address] [place] [address] Care Team Providers Care Rn Ent Name Role Phone Eduardo Parson MD Primary Care Provider [phone] Allergies No known active allergies Medications * [...] episode, moderate 04/02/2006 11/09/2023 Overview (11/09/2023): 04/02/2006 [facility] Encounters Date Type Department Care Team Description 03/30/2025 myChart Message [facility] [address] Department [address] [facility] [place] [address] Eduardo Parson MD MRI results 03/15/2025 7:06 AM EDT - 03/15/2025 11:59 PM EDT Hospital Encounter [facility] [address] [place] [address] Eri Chaney MD Breast cancer screening by mammogram Discharge Disposition: Home or Self Care () 03/15/2025 7:06 AM EDT - 03/15/2025 11:59 PM EDT Hospital Encounter [facility] [address] [place] [address] Eri Chaney MD Post-menopausal Discharge Disposition: Home or Self Care () 03/11/2025 Results Follow-Up [address] Department [address] [place] [phone] Eduardo Parson MD Results 02/22/[address] Department [address] [place] [phone] Eduardo Parson MD Copies 02/21/2025 12:35 PM EDT Lab [facility] Site Department [address] [place] [address] Elevated serum globulin level; Pre-diabetes; Diarrhea, unspecified type; Pure hypercholesterolemia 02/21/2025 11:00 AM EDT Office Visit [address] Department [address] [place] [phone] Eduardo Parson MD Annual physical exam (Primary Dx); Pre-diabetes; Vitamin D deficiency; Anxiety about health; Diarrhea, unspecified type 02/16/2025 6:55 AM EDT Lab [facility] Site Department [address] [place] [address] Healthcare maintenance; Hyperglycemia; Vitamin D deficiency 02/16/2025 Results Follow-Up [address] Department [address] [place] [phone] Katy Robbins NP from Last 3 Months Immunizations Immunization Administration Dates Next Due Covid-19, Pfizer, mRNA, Wirt valent, PF 30 mcg/0.3 mL dose (for [...] the past 12 months has th e [employer], gas, oil, or water [employer]ev[employer] threatened to shut off services in your [...] Description 12/11/2025 8:00 AM EDT Office Visit [facility] [address] [facility] [address] [place] [address] Eri Chaney MD [address] [place] [address] 02/27/2026 8:30 AM EDT Office Visit [facility] [address] [facility] Department 10 [facility] [place] [address] Eduardo Parson MD [address] [place] [address] Health Maintenance Due Date Last Done Comments [...] complete this topic Procedures * Due to [place] state law, this organization might not be [...] EDT Healthcare maintenance LAB - SCANNED 02/13/2025 THINPREP PAP WITH HPV SCREEN AND REFLEX HPV 16, 18/45 - PHIPPS ONLY Routine 11/21/2024 8:21 AM EDT Women's annual routine gynecological examination HEPATITIS C ANTIBODY W/REFLEX TO HCV RNA, QUANTITATIVE PCR Routine 10/20/2023 6:40 AM EDT Healthcare maintenance HM COLONOSCOPY 10/16/2021 10:51 AM EDT from Last 3 Months or Most Recently Relevant to Health Maintenance Results * Due to [place] state law, this organization might not be [...] to obtain the completed interpretation. Workstation ID: [id number] Narrative 03/16/2025 8:43 AM EDT EXAM: BONE MINERAL DENSITY INDICATION: 65 years years-old Female with history of Post-Menopausal State Z78.0 - I10 - Asymptomatic menopausal state. PROCEDURE: The bone mineral density (BMD) of the spine and proximal left femur was determined using an external X-ray source (H[employer]). SITE: [facility] COMPARISON: Prior BMD of 2013 FINDINGS: [...] TBS: >1.31; degraded: <1.24) Resulting Agency Comment [id number] Procedure Note Jenni Barroso MD - 03/16/2025 EXAM: BONE MINERAL DENSITY INDICATION: 65 years years-old Female with history of Post-MenopausalState Z78.0 - I10 - Asymptomatic menopausal state. PROCEDURE: The bone mineral density (BMD) of the spine and proximal leftfemur was determined using an external X-ray source (Hologic). SITE: [facility] COMPARISON: Prior BMD of 2012 FINDINGS: [...] possible to obtain thecompleted interpretation. Workstation ID: [id number] Eri Chaney MD IMG DXA PROCEDURES Final Result * MAHAD Bilateral Screening Digital Mammogram With Vinod (03/15/2025 7:38 AM EDT) Anatomical Region Laterality Modality Breast Bilateral Mammography Narrative 03/27/2025 9:12 AM EDT Bhumika Sandoval Exam Date: 03/15/[address] [address] EXAMINATION MAHAD Bilateral Screening Digital Mammogram With Vinod. INDICATION Bhumika Sandoval is a 65 y.o. female and is seen for: screening. CC and MLO views were obtained. FDA approved Synata AI (artificial intelligence) software and R2 CAD [...] A BUS ) depending on risk factors. https://acsearch.acr.org/docs/1658503/Narrative/ TC score is not calculated for women with personal history of breast cancer or if age >80 years. If this radiology report contains a blank impression section, it is an incomplete radiology report. Please contact the interpreting radiologist or applicable radiology division as soon as possible to obtain the completed interpretation. Carla Rogers MD Resulting Agency Comment [id number] Eri Chaney MD IMG BI PROCEDURES Final [...] moderate, high) are based on Kelsie Barnard [facility] 2017;[id number]. Blood Structure of peripheral vein / Unknown Venipuncture / Unknown 02/21/2025 12:33 PM EDT 02/21/2025 12:33 PM EDT Narrative [facility] - 02/26/2025 9:24 PM EDT [facility] Received Date: us Eduardo Parson MD LAB BLOOD ORDERABLES Final Res ult ZULEYMA NAVARRO [address] [place] [address] 3rd Floor, [place] [address], [place] [phone] ZULEYMA POP (CARL) [address] [place], [place] , * (ABNORMAL) Protein electrophoresis, serum (02/21/2025 12:33 PM EDT) Pathologist [facility] Protein, Total 7.7 6.1 - 8.1 g/dL 02/22/2025 7:28 PM EDT [facility] Albumin 4.5 3.8 - 4.8 g/dL 02/22/2025 7:28 PM EDT [facility] Alpha 1 Globulin 0.4(H) 0.2 - 0.3 g/dL 02/22/2025 7:28 PM EDT [facility] Alpha 2 Globulin 0.8 0.5 - 0.9 g/dL 02/22/2025 7:28 PM EDT [facility] Beta 1 Globulin 0.4 0.4 - 0.6 g/dL 02/22/2025 7:28 PM EDT [facility] Beta 2 Globulin 0.3 0.2 - 0.5 g/dL 02/22/2025 7:28 PM EDT [facility] Gamma Globulin 1.3 0.8 - 1.7 g/dL 02/22/2025 7:28 PM EDT [facility] Interpretation See Comments 02/22/2025 7:28 PM EDT [facility] Comment: Alpha-1 globulin increase noted. Blood Structure of peripheral vein / Unknown Venipuncture / Unknown 02/21/2025 12:33 PM EDT 02/21/2025 12:33 PM EDT [facility]ative [facility] 02/22/[facility]25 7:28 PM EDT [facility] Received Date:[id number] us Eduardo Parson MD LAB BLOOD ORDERABLES Final Res ult Performing Organization Address City/[facility]/ZIP Co de Phone Number [facility] [address], [place] [address], [place] [phone] [facility] 200 [facility] [address]rd [facility], [place] [address], [place] [phone] * Lipase (02/21/2025 12:33 PM EDT) Lipase 34 13 - 60 U/L 02/21/2025 2:58 PM EDT [facility] Blood Structure of peripheral vein / Unknown Venipuncture / Unknown 02/21/2025 12:33 PM EDT 02/21/2025 12:33 PM EDT us Eduardo Parson MD LAB BLOOD ORDERABLES Final Res ult [facility] [address] [place] [address], [place] [phone] * Amylase (02/21/2025 12:33 PM EDT) Amylase 84 28 - 127 U/L 02/21/2025 2:58 PM EDT [facility] Blood Structure of peripheral vein / Unknown Venipuncture / Unknown 02/21/2025 12:33 PM EDT 02/21/2025 12:33 PM EDT Eduadro Parson MD LAB BLOOD ORDERABLES Final Res ult Performing Organization Address [facility]/ZIP Co de Phone Number [facility] [address] [address], [place] [phone] * TSH Reflex Free T4 (02/16/2025 6:57 AM EDT) TSH 2.610 0.270 - 4.200 uIU/mL 02/16/2025 10:28 AM EDT [facility] Blood Structure of peripheral vein / Unknown Venipuncture / Unknown 02/16/2025 6:57 AM EDT 02/16/2025 6:57 AM EDT Angie Sapp NP LAB BLOOD ORDERABLES Final Re sult Performing Organization Address [facility]/ZIP Co de Phone Number [facility] [address] [address], [place] [phone] * Lipid Panel w/Reflex to Direct LDL (02/16/2025 6:57 AM EDT) Cholesterol 258 mg/dL 02/16/2025 10:28 AM EDT [facility] Comment: DESIRABLE: <200 mg/dL BORDERLINE HIGH: 200-239 mg/dL HIGH: >239 mg/dL Triglycerides 83 mg/dL 02/16/2025 10:28 AM EDT [facility] Comment: NORMAL: <150 mg/dL BORDERLINE HIGH: 150-199 mg/dL HIGH: 200-499 mg/dL VERY HIGH >499 mg/dL Cholesterol, HDL 104 mg/dL 02/17/20 10:28 AM EDT [facility] Comment: DESIRABLE: >60 mg/dL BORDERLINE: 40-59 mg/dL UNDESIRABLE: <40 mg/dL LDL Cholesterol 137 mg/dL 10:28 AM EDT [facility] Comment: OPTIMAL: <100 mg/dL NEAR OPTIMAL: <130 mg/dL BORDERLINE HIGH: 130-159 mg/dL HIGH: 160-189 mg/dL VERY HIGH: >189 mg/dL VLDL 16.6 mg/dL 02/16/2025 10:28 AM EDT [facility] Cholesterol/HDL Ratio 2.5 02/16/2025 10:28 AM EDT [facility] Blood Structure of peripheral vein / Unknown Venipuncture / Unknown 02/16/2025 6:57 AM EDT 02/16/2025 6:57 AM EDT Angie Sapp IS/IT PROJECT MANAGER LAB BLOOD ORDERABLES Final Re sult [facility] [address] [address], * (ABNORMAL) CBC Auto Differential (02/16/2025 6:57 AM EDT) WBC 6.4 4.8 - 10.8 10*3/uL 02/16/2025 10:47 AM EDT [facility] RBC 4.69 4.20 - 5.40 10*6/uL 02/16/2025 10:47 AM EDT [facility] Hemoglobin 13.9 11.7 - 15.5 g/dL 02/16/2025 10:47 AM EDT [facility] Hematocrit 42.1 35.7 - 45.8 % 02/16/2025 10:47 AM EDT [facility] MCV 89.8 81.0 - 99.0 fL 02/16/2025 10:47 AM EDT [facility] MCH 29.6 26.0 - 34.0 pg 02/16/2025 10:47 AM EDT [facility] MCHC 33.0 31.0 - 36.0 g/dL 02/16/2025 10:47 AM EDT [facility] RDW 14.6 12.0 - 15.0 % 02/16/2025 10:47 AM EDT [facility] RDW Standard Deviation 48.3(H) 36.4 - 46.3 fL 02/16/2025 10:47 AM EDT [facility] Platelets 271 140 - 440 10*3/uL 02/16/2025 10:47 AM EDT [facility] MPV 13.0(H) 9.4 - 12.3 fL 02/16/2025 10:47 AM EDT [facility] Neutrophil % 65.3 50.0 - 75.0 % 02/16/2025 10:47 AM EDT [facility] Immature Grans % 0.2 0.0 - 0.9 % 02/16/2025 10:47 AM EDT [facility] Lymphocyte % 22.2 20.0 - 44.0 % 02/16/2025 10:47 AM EDT [facility] Monocyte % 9.7 0.0 - 14.0 % 02/16/2025 10:47 AM EDT [facility] Eosinophil % 2.0 0.0 - 5.0 % 02/16/2025 10:47 AM EDT [facility] Basophil % 0.6 0.0 - 2.0 % 02/16/2025 10:47 AM EDT [facility] Neutrophil # 4.18 1.80 - 7.70 10*3/uL 02/16/2025 10:47 AM EDT [facility] Immature Grans # <0.03 0.00 - 0.03 10*3/uL 02/16/2025 10:47 AM EDT [facility] Lymphocyte # 1.40 1.00 - 4.75 10*3/uL 02/16/2025 10:47 AM EDT [facility] Monocyte # 0.60 0.00 - 0.60 10*3/uL 02/16/2025 10:47 AM EDT [facility] Eosinophil # 0.10 0.00 - 0.80 10*3/uL 02/16/2025 10:47 AM EDT [facility] Basophil # <0.03 0.00 - 0.20 10*3/uL 02/16/2025 10:47 AM EDT [facility] nRBC % 0.0 0 - 0 /100 WBCs 02/16/2025 10:47 AM EDT [facility] nRBC # <0.01 0.00 - 0.13 10*3/uL 02/16/2025 10:47 AM EDT [facility] Blood Structure of peripheral vein / Unknown Venipuncture / Unknown 02/16/2025 6:57 AM EDT 02/16/2025 6:57 AM EDT us Angie Sapp NP LAB BLOOD ORDERABLES Final Re sult Performing Organization Address [facility]/ZIP Co de Phone Number [facility] [address] [address], [place] [phone] * Vitamin D, 25-Hydroxy, Total, Immunoassay (02/16/2025 6:57 AM EDT) Vitamin D 25-OH 38.40 30.00 - 80.00 ng/mL 02/16/2025 3:18 PM EDT [facility] Blood Structure of peripheral vein / Unknown Venipuncture / Unknown 02/16/2025 6:57 AM EDT 02/16/2025 6:57 AM EDT Angie Sapp NP LAB BLOOD ORDERABLES Final Re sult [facility] [address] [address], [place] [phone] * (ABNORMAL) Hemoglobin A1c (02/16/2025 6:57 AM EDT) Hemoglobin A1c 6.0(H) 4.0 - 5.7 % 02/16/2025 10:33 AM EDT [facility] Estimated Average Glucose 126 mg/dL 02/16/2025 10:33 AM EDT [facility] Blood Structure of peripheral vein / Unknown Venipuncture / Unknown 02/16/2025 6:57 AM EDT 02/16/2025 6:57 AM EDT Angie Johnathon Sapp IS/IT PROJECT MANAGER LAB BLOOD ORDERABLES Final Re sult [facility] [address] [facility] 2ND [place] [address], * (ABNORMAL) Hepatic Function Panel (02/16/2025 6:57 AM EDT) Total Protein 8.4 6.6 - 8.7 g/dL 02/16/2025 10:28 AM EDT [facility] Albumin 4.6 3.5 - 5.0 g/dL 02/16/2025 10:28 AM EDT [facility] Globulin, Total 3.8 2.1 - 4.2 g/dL 02/16/2025 10:28 AM EDT [facility] Bilirubin, Total 0.4 0.2 - 1.2 mg/dL 02/16/2025 10:28 AM EDT [facility] Bilirubin, Direct 0.1 <=0.3 mg/dL 02/16/2025 10:28 AM EDT [facility] Alkaline Phosphatase 78 40 - 129 U/L 02/16/2025 10:28 AM EDT [facility] AST 27 0 - 33 U/L 02/16/2025 10:28 AM EDT [facility] ALT 19 <=33 U/L 02/16/2025 10:28 AM EDT [facility] Bilirubin, Indirect 0.30 <=0.70 mg/dL 02/16/2025 10:28 AM EDT [facility] A/G Ratio 1.2(L) 1.5 - 3.0 02/16/2025 10:28 AM EDT [facility] Blood Structure of peripheral vein / Unknown Venipuncture / Unknown 02/16/2025 6:57 AM EDT 02/16/2025 6:57 AM EDT us Angie Johnathon Sapp IS/IT PROJECT MANAGER LAB BLOOD ORDERABLES Final Re sult [facility] [address] [place] [address], [place] [phone] * (ABNORMAL) Basic Metabolic Panel (02/16/2025 6:57 AM EDT) NA 138 136 - 145 mmol/L 02/16/2025 10:28 AM EDT [facility] K 4.6 3.5 - 5.1 mmol/L 02/16/2025 10:28 AM EDT [facility] Cl 100 98 - 109 mmol/L 02/16/2025 10:28 AM EDT [facility] CO2 24 22 - 32 mmol/L 02/16/2025 10:28 AM EDT [facility] BUN 12 8 - 23 mg/dL 02/16/2025 10:28 AM EDT [facility] Creatinine 0.57 0.50 - 1.12 mg/dL 02/16/2025 10:28 AM EDT [facility] Glucose 100(H) 60 - 99 mg/dL 02/16/2025 10:28 AM EDT [facility] Calcium 10.2 8.4 - 10.4 mg/dL 02/16/2025 10:28 AM EDT [facility] Anion Gap 19 >=0 02/16/2025 10:28 AM EDT [facility] eGFR >90 >=60 mL/min/1. 73m2 02/16/2025 10:28 AM EDT [facility] Comment:The estimated glomer ular filtration [...] NP LAB BLOOD ORDERABLES Final Re sult [facility] [address] [place] [address], [place] [phone] * LAB - SCANNED (02/13/2025) us Onbase Scan [facility] HISTORICAL RESULTS Final Result * Thinprep Pap with HPV Screen and Reflex HPV 16, 18/45 - [place] only (11/21/2024 8:21 AM EDT) Pap Result Normal 11/27/2024 12:00 AM EDT [facility] Comment: PAP TEST INTERPRETATION Negative for intraepithelial lesion/malignancy. Specimen Adequacy: Satisfactory for evaluation. Endocervical/transformation zone absent (atrophic smear). Additional Findings: Atrophic smear. Bear Keeper: MELISSA Coombs (ASCP) Electronic Signature: 11/27/2024 12:45 Ancillary Testing Test Name Results HPV High NEGATIVE Risk HPV NEGATIVE Genotyping 16 HPV NEGATIVE Genotyping 18 Clinical History NO LMP GIVEN Source: Cervical/Endocervical Status: Routine/Screening Comments: Z01.419 Prior Cytology/Molecular History +------ // 2024 +------+------+------+------ Thinprep PAP - NILM - +------+------+------+------ Thinprep PAP NILM - UNSAT w/data support analyst +------+------+------+------ HPV High NEGATI NEGATI NEGATI Risk VE VE VE +------+------+------+------ HPV NEGATI - - Genotyping VE 16 +------+------+------+------ HPV NEGATI - - Genotyping VE 18 Technical services and automated prescreening by the ThinPrep Imaging System performed at [facility] ([facility], [address] [place] [address]; ; [id number]; CLIA #[id number]) All professional services performed by [facility] ([address] [place] [address]; ; CLIA #[id number]) Testing for HPV was performed at [facility] (CLIA# [id number], [id number]) using the Joe ENRIQUE 6800 system. [...] 8:21 AM EDT 11/22/2024 9:28 AM EDT us Eri Chaney MD LAB PATH/CYTO ([place] ) Final Result [facility] [address] [place] [phone], * Hepatitis C Antibody w/Reflex to HCV RNA, Quantitative PCR (10/20/2023 6:40 AM EDT) Hepatitis C Antibody Interpretation Nonreactive Nonreactive 10/20/2023 3:38 PM EDT [facility] Blood Structure of peripheral vein / Unknown Venipuncture / Unknown 10/20/2023 6:40 AM EDT 10/20/2023 6:42 AM EDT us Maria Fernanda Borden IS/IT PROJECT MANAGER LAB BLOOD ORDERABLES Final R esult [facility] [address] [place] [address], * Colonoscopy (10/16/2021 10:51 AM EDT) [facility] from Last 3 Months or Most Recently Relevant to Health Maintenance Insurance [facility] Advance Directives Documents on File Type Date Recorded Patient Line Server Expl anation Health Care Proxy 08/31/2022 08/05/2022 Healthcare Agents on File Name Relationship Healthcare Agent Relationshi p Communication Guerrero Oscar Spouse Health Care Agent Care Teams Rn Ent Relationship Specialty Start Date End Date Eduardo Parson MD [address] [place] [phone] PCP - General Family Medicine 11/08/24
--- OUTSIDE RECORDS SUMMARY | 2025-05-08 07:31 | XMS_ITS | Patient Health Record ---
Author Organization [facility] Address [address] [facility] 4TH [place] [address] Care Team Providers Care Street Sweeper Operator Name Role Phone Sohail Andrea MD Primary Care Provider Raul Ying MD,MPH, Ezra Samuel Reason For Referral No Information Medications Medication SIG (Take, Route, Fr equency, Duration) Notes Start Date End Date Status valACYclovir HCl 1 GM 1 tab(s) orally 2 times a day; Duration: 14 day(s) Active Famciclovir 250 MG 1 tab(s) orally daily Active Social History Tobacco Use: Social History Observation Description Date Details (start date - stop date) Former Smoker NA - NA Smoking: Question Answer Notes Are you a : Former Smoker How long has it been since you last smoked? 3-6 months Section Notes: less than 6 months as teen less than 6 months as teen Problems Problem Type SNOMED Code ICD Code Onset Dates Problem Status W/U Status Risk Notes Problem Non-smoker (0442236) Non-smoker (Z78.9) Active confirmed Problem Aphthous ulcer of mouth (984538106) Oral aphthous ulcer (K12.0) Active confirmed Plan Of Treatment No Information Insurance Providers Payer Name Payer Address Payer Phone Subscriber Number Group Number Insured Name Patient Relationship to Insured Coverage Start Date Coverage End Date [employer] [address] [place] [address] [id number] Kaleb Recinos Spouse - patient is the spouse of the insured 8 Medical (General) History Surgical History Surgery Date(Month/Year) eye surgery at age 56 years old
--- OUTSIDE RECORDS SUMMARY | 2025-05-08 07:31 | XMS_ITS | Clinical Summary ---
Author Organization [facility] Address [address] [place] [address] Care Team Providers Care Aircraft Line Assembler Name Role Phone Sohail Santos MD Primary Care Provider [phone] Allergies No known active allergies Medications * [...] episode, moder ate 04/02/2006 Overview (01/24/2008): 04/02/2006 [facility] Psoriasis 03/22/1995 Overview (01/24/2008): 03/22/1995 Miguel [...] Additional history exists COVID-19 Vaccine ( - 2024- season) 2025 Influenza (#1) 2025 05/18/2006 RSV [...] Zoster (Zostavax) Discontinued Procedures * Due to [place] law, this organization might not be sharing negative HIV tests. Procedure Name Priority Date/Time Associated Diagnosis Comments DIGITAL SCREENING MAMMO Routine 11/22/2013 7:10 AM EDT LIQUID-BASED PAP WITH HPVH Routine 04/19/2009 from Last 3 Months or Most Recently Relevant to Health Maintenance Results * Due to [place] law, this organization might not be sharing negative HIV tests. * DIGITAL SCREENING MAMMO (11/22/2013 7:10 AM EDT) RADIOLOGY REPORT DEPARTMENT OF RADIOLOGY Patient: BHUMIKA SANDOVAL Unit #: [id number] Ordering MD: SOHAIL SANTOS MD : 1960 Procedure: Digital Screening Mammo Age: 53 Location: C.LAB Exam Date: 11/22/13 Status: REG CLI Room/Bed: Primary MD: Patient Order: [id number] Additional Copy: SOHAIL SANTOS MD #[id number] - DIGSCRMAM #BILATERAL DIGITAL SCREENING MAMMOGRAM WITH CAD: 11/22/2013 CLINICAL: Routine. Comparison is made to exams dated: 08/05/2012 mammogram - [facility] and 07/07/2011 mammogram - [facility]. There are scattered fibroglandular elements in both [...] sent: A-Normal Benign Mammogram BI-RADS: 1 Negative [facility] Anatomical Region Laterality Modality Other 11/22/2013 [...] OR VAGINAL SPECIMENS, HAVE BEEN DETERMINED BY [facility]. COMMENTS: THIS PAP TEST HAS BEEN EVALUATED WITH COMPUTER ASSISTED TECHNOLOGY. HPV PERFORMED AT [facility], [address] [place] [address], RAGINI MCDONNELL M.D., DIRECTOR RESULT DATE: 04/23/2009 [...] WITH COMPUTER ASSISTED TECHNOLOGY. HPV PERFORMED AT [facility], [address] [place] [address], RAGINI MCDONNELL M.D., DIRECTOR [facility] Final Result [facility] [address] [place] [address] from Last 3 Months or Most Recently Relevant to Health Maintenance Insurance [employer] [facility] FFS SELECT CARE (HMO) * Guarantor: BHUMIKA SANDOVAL Account Type Relation to Patient Date of Phone Billing Address [facility] [address] [place] [id number] [employer] * Guarantor: [facility] Account Type Relation to Patient Date of Phone Billing Address [facility] ATTN: A/P [address] [place] [address] Care Teams Aircraft Line Assembler Relationship Specialty Start Date End Date Sohail Santos MD [facility] [address] [place] [phone] PCP - General 07/27/09
--- OUTSIDE RECORDS SUMMARY | 2025-05-08 07:31 | XMS_ITS | Clinical Summary ---
Author Organization [facility] Address [address] [facility] [address] [place] [phone] Phone Care Team Providers Care Landscape Technician Name Role Phone Sohail Andrea MD [...] topic Medical Devices Not on file Insurance [facility] [employer] [place] [id number] [employer] [place] [id number] [employer] Care Teams Landscape Technician Relationship Specialty Start Date End Date Sohail Andrea MD [address] [place] [id number] PCP - General Family Medicine 02/21/18 Additional Source Comments The information contained in this document represents components of the legal health record. It is not the complete legal health record.[facility]
--- OUTSIDE RECORDS SUMMARY | 2025-05-08 07:31 | XMS_ITS | Encounter Summary ---
Author Organization [facility] Address [address] [place] [address] Care Team Providers Care Computer Service Technician Name Role Phone Eduardo Parson MD Primary Care Provider [phone] Encounter Details Date Type Department Care Team (Latest Contact Info) Description 10/12/2022 Transcribe Orders [facility] Physician Referral Services [address] [place] [address] Sohail Andrea MD [address] [place] [address] Elevated AST (SGOT) (Primary Dx); Family history [...] Description 12/11/2025 8:00 AM EDT Office Visit [facility] [address] [facility] Gynecology [address] [place] [phone] Eri Chaney MD [address] [place] [address] 02/27/2026 8:30 AM EDT Office Visit [facility] [address] [facility] Department [address] [facility] [place] [address] Eduardo Parson MD [address] [place] [phone] documented as of this encounter Visit Diagnoses Diagnosis Elevated AST (SGOT)- Primary Family history of malignant neoplasm of pancreas documented in this encounter Care Teams Computer Service Technician Relationship Specialty Start Date End Date Eduardo Parson MD [address] [place] [phone] PCP - General Family Medicine 11/08/24 documented as of this encounter
== END 2025-05-08 07:29 | disposition home or self-care (01) ==
LOC: HO.MRI 07:28
PROVIDERS: PCP Family Medicine; Visit Provider Internal Medicine
DX: K80.50 Calculus of bile duct without cholangitis or cholecystitis without obstruction (principal)
CPT/HCPCS: 74181